=== PATIENT | female | born 1980 | race Caucasian/White ===

== ENCOUNTER → 2020-04-09 | Outpatient (CLI) | payer BC ==
[2020-04-09 11:55] LABS: Basophils # (A) 0.1 k/uL (0-0.2); Basophils % (A) 1 %; Eosinophils # (A) 0.2 k/uL (0-0.7); Eosinophils % (A) 3 %; HCT 42.4 % (34.0-46.0); HGB 12.9 gm/dL (11.4-16.0); Lymphocytes # (A) 1.6 k/uL (1.0-4.8); Lymphocytes % (A) 22 %; MCH 28.6 pg (25.0-35.0); MCHC 30.5 g/dL (31.0-37.0); Mean Platelet Volume 9.9; Monocytes # (A) 0.4 k/uL (0-1.0); Monocytes % (A) 6 %; Neutrophils # (A) 4.8 k/uL (1.3-7.7); Neutrophils % (A) 67 %; Platelet Count 175 k/uL (150-450); RBC 4.52 m/uL (3.80-5.40); RDW 12.8 % (11.5-15.5); WBC 7.2 k/uL (3.8-10.6)
[2020-04-09 20:00] LABS: Albumin 4.1 g/dL (3.80-4.90); Albumin/Globulin Ratio 2.05 (1.60-3.17); Anion Gap 7.5 mmol/L (4.00-12.00); Calcium 8.9 mg/dL (8.7-10.3); Carbon Dioxide 25.5 mmol/L (21.6-31.8); Chol/HDL Ratio 2.23; LDL Cholesterol,Calculated 89.8 mg/dL (0.0-131.0); Non-African American GFR(CKD) 69.9 (60.0-200.0); Potassium 4.3 mmol/L (3.5-5.5); Total Bilirubin 0.4 mg/dL (0.3-1.2); Total Protein 6.1 g/dL (6.2-8.2); VLDL Calculation 10.2 mg/dL (5.00-40.00)
== END | disposition home or self-care (01) ==
LOC: LABWHC1 11:12
PROVIDERS: ATTEND Internal Medicine
DX: K21.0 Gastro-esophageal reflux disease with esophagitis (principal); E11.9 Type 2 diabetes mellitus without complications; K58.0 Irritable bowel syndrome with diarrhea
CPT/HCPCS: 36415; 80053; 80061; 83036; 85025

== ENCOUNTER → 2020-11-05 | Outpatient (CLI) | payer BC ==
--- NOTE | 2020-11-06 08:00 | MM ---
Reason for exam: history of breast augmentation, asymptomatic. Baseline mammogram. History: Patient had first child at age 30. Silicone gel implants, 2012. Physical Findings: Nurse did not find any significant physical abnormalities on exam. MG 3D Diag Mammo Imp W/Cad ALTON Bilateral CC, MLO, and ID view(s) were taken. The breast tissue is heterogeneously dense. This may lower the sensitivity of mammography. Bilateral retropectoral silicone implants. Medial right C view nodular asymmetric density disperses on additional views. Low left upper outer quadrant node near the axilla. These results were verbally communicated with the patient and result sheet given to the patient on 11/05/20. ASSESSMENT: Benign, BI-RAD 2 RECOMMENDATION: Routine screening mammogram of both breasts in 1 year.
== END | disposition home or self-care (01) ==
LOC: RADMAMWWP 14:54
PROVIDERS: ATTEND Internal Medicine
DX: R92.8 Other abnormal and inconclusive findings on diagnostic imaging of breast (principal)
CPT/HCPCS: 77062; 77066

== ENCOUNTER → 2020-12-21 | Outpatient (CLI) | payer BC ==
--- NOTE | 2020-12-21 15:39 | XR ---
Lumbar spine HISTORY: Low back pain, M 47.817 3 views of the lumbar spine Surgical clips are present in the right upper quadrant, there is a metallic device in the right lower quadrant. Question rudimentary ribs at L1. There is loss of disc height L5-S1 greater than L4-5, mul tilevel spondylosis. Sclerosis is present in the posterior elements. Lumbar vertebral bodies show pre served height, alignment, and bone mineralization. IMPRESSION: Degenerative disc disease and additional findings above.
== END ==
LOC: RADXRMAIN 11:45
PROVIDERS: ATTEND Internal Medicine
DX: M47.817 Spondylosis without myelopathy or radiculopathy, lumbosacral region (principal); M51.36 Other intervertebral disc degeneration, lumbar region
CPT/HCPCS: 72100

== ENCOUNTER → 2021-01-28 | Outpatient (CLI) | payer BC ==
--- NOTE | 2021-01-29 04:01 | MR ---
EXAMINATION TYPE: MR lumbar spine wo con DATE OF EXAM: 01/28/2021 COMPARISON: None HISTORY: Low back pain into rt buttocks and left leg Multiplanar multiecho imaging of the lumbar spine was performed with no contrast. The lumbar vertebra have normal alignment. There is narrowing and decreased signal in the disks at L4 -5 and L5-S1. There is moderate posterior disc herniation at L5-S1 into the spinal canal centrally an d towards left side. The neural foramina are fairly well-maintained. Lumbar nerves appear normal. There is no paraspinal m ass. There is no compression fracture. Sacroiliac joints appear intact. IMPRESSION: Spondylotic changes at L4-5 and L5-S1. Posterior moderate central and left side L5-S1 lumbar disc her niation. No spinal stenosis.
== END | disposition home or self-care (01) ==
LOC: RADMRIMAIN 08:10
PROVIDERS: ATTEND Internal Medicine
DX: M51.27 Other intervertebral disc displacement, lumbosacral region (principal); M47.817 Spondylosis without myelopathy or radiculopathy, lumbosacral region
CPT/HCPCS: 72148

== ENCOUNTER → 2021-02-24 | Outpatient (CLI) | payer BC ==
[2021-02-24 11:00] VITALS: BP 106/70; PULSE 77; RESP 16; TEMP 98.4
--- NOTE | 2021-02-24 11:06 | P.PAINCN ---
History of Present Illness - Reason for Consult Consult date: 02/24/21 - History of Present Illness This is a 40-year-old patient referred by Dr. Polanco with a chief complaint of chronic pain in low back with radiation into left buttock and leg. Charted 4 months ago with no inciting incident. Pain is located in the left low back with radiation down the posterior aspect of the leg to the knee. Pain is described as sharp, shooting, numb and tingling. Alleviated with laying down and rest. Exacerbated by standing from a seated position and walking. Early 7 out of 10, at its worst a 7 out of 10, at best at 7 out of 10. She does not endorse any weakness in the left leg, just pain. In terms of management she did a full course of physical therapy relief. She has tried muscle relaxants and [facility] with no real help. She has not had injections in the back before. Patient denies adverse drug effects from medications. Patient also denies new-onset weakness, bowel/bladder incontinence, or any other signs or symptoms of cauda equina syndrome. There are no signs of acute intoxication, and no indications of medication diversion or overuse. In addition to above, 13-point review of systems is also negative for chest pain, shortness of breath, changes in vision, changes in hearing, new onset weakness, abdominal pain, diarrhea, extreme fatigue, malaise, fever, skin changes, homicidal or suicidal ideation, or bowel or bladder incontinence. Physical exam: Vital Signs: Reviewed in EMR GENERAL: Well appearing, in no acute distress PSYCH: Mood and affect is appropriate. Awake, alert, and oriented SKIN: Skin color, texture, turgor normal, no rashes or lesions HEENT: Normocephalic, atraumatic. EOM intact CV: No pedal edema RESP: Respirations are unlabored, no audible wheezing GI: Abdomen non-distended MUSCULOSKELETAL: 4/5 L hip flexion, otherwise intact bilaterally strength reynoso.. No atrophy or tone abnormalities are noted. Lumbar spine: Straight leg raising on the left is positive for radicular pain. No pain to palpation over the lumbar spine and paraspinous muscles. Negative for pain with facet loading and back extension/rotation. Decreased lumbar flexion due to pain Buttocks: No pain to palpation over the PSIS, Ruchi test is negative Extremities: Peripheral joint ROM is full and pain free without obvious instability or laxity in all four extremities. No edema or skin discolorations noted. Gait: Gait is normal NEUR: Bilateral upper and lower extremity coordination and muscle stretch reflexes are physiologic and symmetric. Negative clonus. No loss of sensation is noted. Cranial nerves are grossly intact. Imaging: Lumbar MRI 01/2021 Her MRI shows normal alignment. There is a moderate central left-sided disc bulge L5-S1 with stenosis of the left lateral recess and left neural foramen Assessment: 1. Lumbar disc herniation Plan: 1. Explanation: Diagnoses, prognoses, and multiple treatment options including but not limited to physical therapy, interventional therapies, medication management and surgery were discussed with the patient and all questions were answered to the patient's satisfaction. 2. Investigations: none 3. Counseling: none 4. Procedures: L L5-S1 TFESI 5. Consultations: None 6. Medications: Continue home medications as needed 7. Disposition: for above procedure I have spent 51 minutes on patient care today. The time was used to review the medical records including relevant urine studies and prescription history, review of the available imaging, evaluation and examination of the patient, coordination of care with medical staff and if applicable referring physicians, as well as creation of the medical record.
== END ==
LOC: PNWHC3 10:43
PROVIDERS: ATTEND Anesthesiology
DX: M51.26 Other intervertebral disc displacement, lumbar region (principal)
CPT/HCPCS: 99211

== ENCOUNTER → 2021-03-11 | Day surgery (SDC) | payer BC ==
[~2021-03-11] MED LIST: DEXAMETHASONE SOD PHOSPHATE 10 MG/ML 1 ML VIAL ONE; IOPAMIDOL M200 10 ML VIAL ONE; IV FLUID CONTINUATION 600 ML IV ONE; LACTATED RINGERS 1,000 ML IV SCH; LIDOCAINE 1% (10MG/ML) FOR IV START INTRADERMA ONE; LIDOCAINE 1% INJ 10MG/ML (20 ML MDV) ONE; MIDAZOLAM 2 MG/2 ML VIAL ONE; fentaNYL (PF) 50 MCG/ML 2 ML AMP ONE
[2021-03-11 07:53] VITALS: RESP 16; TEMP 98.2
[2021-03-11 07:55] LABS: Glucose,Whole Blood 334 mg/dL (75-99)
--- NOTE | 2021-03-11 08:46 | P.PCN ---
Date of Procedure: 03/11/21 Surgeon: Lawrence Perry Pathology: none sent Condition: stable Disposition: PACU Description of Procedure: PREOPERATIVE DIAGNOSIS: Lumbar radiculopathy POSTOPERATIVE DIAGNOSIS: Lumbar radiculopathy PROCEDURE 1. Transforaminal epidural steroid injection under fluoroscopic guidance at L5- S1 left 2. Lumbar epidurogram. SURGEON: Lawrence Perry MD PULLING MACHINE OPERATOR: ANESTHESIA: Local with 1% lidocaine; IV sedation with Versed and fentanyl. EBL: Minimal PROCEDURE INDICATION: The patient with low back pain and radiculopathy symptoms unresponsive to conservative treatment. PROCEDURE DESCRIPTION / TECHNIQUE: The patient was seen and identified in the preoperative area. Risks, benefits, complications, and alternatives were discussed with the patient. The patient agreed to proceed with the procedure and signed the consent. IV was started, and vital signs were stable. Patient was taken to the OR and time out was completed. The patient was placed in the prone position on procedure table and a pillow was placed under the abdomen to reduce lumbar lordosis. The lumbosacral area was prepped and draped in the usual sterile fashion. Critical pause was taken. Vital signs were closely monitored during the procedure. Conscious sedation was used during the procedure to decrease patients anxiety. The vertebral body of the lumbar vertebra L5 was squared off by tilting the C-arm cephalad then the C-arm was tilted to the oblique position and the target point was at the 6 o'clock position of the pedicle of L5 then skin and deeper tissues were localized with 1% lidocaine. Subsequently, a 22-gauge 3.5- inch spinal needle was advanced under a tunneled view fluoroscopic guidance just underneath the chin of the Luis Alfredo dog at the . Under lateral fluoroscopy, the needle was then advanced to the middle of the upper one third of the foramen between( L5-S1). After negative aspiration of CSF and blood and with no paresthesias, 1 mL of omnipaque contrast dye was injected excellent epidurogram and outlining of the L5 nerve root was identified. Subsequently, 2 mL of block solution containing 10 mg of Decadron and 1 mL of Lidocaine 1% PF was injected. Needle was removed intact . At the end of the procedure, skin was cleansed, and bandages were applied. COMPLICATIONS: None COMMENTS: DISPOSITION / PLANS: The patient was placed in a supine position and transferred to the recovery area in a stable condition for observation. There was no evidence of lower extremity motor or sensory deficit after the procedure. Patient was discharged from the recovery room after meeting discharge criteria. Home discharge instructions were given to the patient by the staff.
[2021-03-11 09:00] LABS: Glucose,Whole Blood 249 mg/dL (75-99)
--- NOTE | 2021-03-11 09:03 | FL ---
Fluoroscopy HISTORY: Pain 20 seconds fluoroscopy time supplied to the referring clinician. 3 intraoperative C-arm images docum ent the procedure. See dictated report from anesthesia.
[2021-03-11 09:18] VITALS: BP 107/67; PULSE 70
== END ==
LOC: ORPAIN 07:06
PROVIDERS: ATTEND Anesthesiology
DX: M54.16 Radiculopathy, lumbar region (principal); E11.9 Type 2 diabetes mellitus without complications
CPT/HCPCS: 81025; 64483; J2250; J1100; J2001; J3010; Q9966; 99152

== ENCOUNTER → 2021-04-12 | Outpatient (CLI) | payer BC ==
--- NOTE | 2021-04-12 15:30 | XR ---
EXAMINATION TYPE: XR chest 2V DATE OF EXAM: 04/12/2021 COMPARISON: NONE HISTORY: Preoperative TECHNIQUE: Frontal and lateral views of the chest are obtained. FINDINGS: There is no focal air space opacity, pleural effusion, or pneumothorax seen. The cardiac silhouette size is within normal limits. The osseous structures are intact. IMPRESSION: No acute cardiopulmonary process.
[2021-04-12 16:14] LABS: Basophils # (A) 0.1 k/uL (0-0.2); Basophils % (A) 1 %; Eosinophils # (A) 0.2 k/uL (0-0.7); Eosinophils % (A) 3 %; HCT 38.5 % (34.0-46.0); HGB 12.8 gm/dL (11.4-16.0); Lymphocytes # (A) 1.9 k/uL (1.0-4.8); Lymphocytes % (A) 24 %; MCH 30.3 pg (25.0-35.0); MCHC 33.2 g/dL (31.0-37.0); MCV 91.5 fL (80.0-100.0); Mean Platelet Volume 8.8; Monocytes # (A) 0.5 k/uL (0-1.0); Monocytes % (A) 6 %; Neutrophils # (A) 5.2 k/uL (1.3-7.7); Neutrophils % (A) 65 %; Platelet Count 182 k/uL (150-450); RDW 12.8 % (11.5-15.5); WBC 8.1 k/uL (3.8-10.6)
[2021-04-12 16:28] LABS: African American GFR (CKD) >90 (>60 ml/min/1.73 sqM); Anion Gap 6 mmol/L; Blood Urea Nitrogen 16 mg/dL (7-17); Calcium 9.2 mg/dL (8.4-10.2); Carbon Dioxide 27 mmol/L (22-30); Chloride 106 mmol/L (98-107); Glucose 109 mg/dL (74-99); Non-African American GFR(CKD) 85 (>60 ml/min/1.73 sqM); Potassium 4.3 mmol/L (3.5-5.1); Sodium 139 mmol/L (137-145)
[2021-04-12 16:34] LABS: Appearance,Urine Cloudy (Clear); Bilirubin,Urine Negative (Negative); Blood,Urine Negative (Negative); Color,Urine Yellow; Glucose,Urine (UA) Negative (Negative); Hyaline Casts,Urine 1 /lpf (0-2); Ketones,Urine Negative (Negative); Leukocyte Esterase,Urine Trace (Negative); Mucus,Urine Rare /hpf; Nitrite,Urine Negative (Negative); PH, Urine 5.5 (5.0-8.0); Protein,Urine Negative (Negative); RBC,Urine 4 /hpf (0-5); Squamous Epithelial Cell,Urine 3 /hpf (0-4); Urobilinogen,Urine <2.0 mg/dL (<2.0); WBC,Urine 4 /hpf (0-5)
[2021-04-12 16:46] LABS: INR 0.9 (<1.2); Prothrombin Time 9.9 sec (9.0-12.0)
[2021-04-12 16:49] LABS: Partial Thromboplastin Time 21.8 sec (22.0-30.0)
== END | disposition home or self-care (01) ==
LOC: RADXRMAIN 14:45
PROVIDERS: ATTEND Orthopaedic Surgery Orthopaedic Surgery of the Spine
DX: Z01.818 Encounter for other preprocedural examination (principal)
CPT/HCPCS: 36415; 71046; 80048; 81001; 85025; 85610; 85730; 93005

== ENCOUNTER 2021-04-21 09:37 | Observation (INO) | payer BC ==
[2021-04-16 15:54] VITALS: BMI 27.1
[~2021-04-21 09:37] MED LIST changes: -DEXAMETHASONE SOD PHOSPHATE 10 MG/ML 1 ML VIAL ONE; +DEXAMETHASONE SOD PHOSPHATE 4 MG/ML 1 ML VIAL IV ONE; -IOPAMIDOL M200 10 ML VIAL ONE; -IV FLUID CONTINUATION 600 ML IV ONE; -LACTATED RINGERS 1,000 ML IV SCH; -LIDOCAINE 1% (10MG/ML) FOR IV START INTRADERMA ONE; +LIDOCAINE 1% (10MG/ML) FOR IV START INTRADERMA PRN; -LIDOCAINE 1% INJ 10MG/ML (20 ML MDV) ONE; +MIDAZOLAM 2 MG/2 ML VIAL IV PRN; -MIDAZOLAM 2 MG/2 ML VIAL ONE; +ONDANSETRON 4 MG/2 ML VIAL IVP ONE; +ceFAZolin 1,000 MG in SODIUM CHLORIDE 0.9% IRRIGATIO 1,000 ML IRRIGATION PRN; -fentaNYL (PF) 50 MCG/ML 2 ML AMP ONE
[2021-04-21] MEDS ORDERED: SCOPOLAMINE 1.5MG/72HR PATCH TRANSDERM ONE (10:11)
[2021-04-21] MEDS: LACTATED RINGERS 1,000 ML IV SCH (10:11)
[2021-04-21 10:14] LABS: Glucose,Whole Blood 140 mg/dL (75-99)
[2021-04-21] MEDS ORDERED: SUCCINYLCHOLINE CHLORIDE 100 MG/5 ML SYR IV ONE (11:48)
[2021-04-21] MEDS ORDERED: MIDAZOLAM 2 MG/2 ML VIAL ONE (11:48)
[2021-04-21] MEDS ORDERED: ROCURONIUM 10 MG/ML (5 ML VIAL) IV ONE (11:48)
[2021-04-21] MEDS ORDERED: fentaNYL (PF) 50 MCG/ML 2 ML AMP ONE (11:48)
[2021-04-21] MEDS ORDERED: GLYCOPYRROLATE 0.2 MG/ML 2 ML VIAL ONE (11:48)
[2021-04-21] MEDS ORDERED: NEOSTIGMINE 1 MG/ML 10 ML VIAL ONE (11:48)
[2021-04-21] MEDS ORDERED: LIDOCAINE 1% INJ 10MG/ML (20 ML MDV) ONE (11:48)
[2021-04-21] MEDS ORDERED: KETAMINE 10 MG/ML 20 ML VIAL ONE (11:48)
[2021-04-21] MEDS ORDERED: PROPOFOL 10 MG/ML 20 ML VIAL IV ONE (11:48)
[2021-04-21 12:09] LABS: Glucose,Whole Blood 106 mg/dL (75-99)
[2021-04-21] MEDS ORDERED: THROMBIN (BOVINE) 5,000 UNIT VIAL TOPICAL ONE (12:20)
[2021-04-21] MEDS: methylPREDNISolone ACETATE 80 MG/ML 1 ML VIAL INJ ONE ×2 (12:20→12:48)
[2021-04-21] MEDS ORDERED: GELATIN SPONGE,ABSORB (LARGE) 1 EACH SPONGE TOPICAL ONE (12:20)
[2021-04-21] MEDS ORDERED: LIDOCAINE 1%-EPI 1:100,000 20 ML VIAL SQ ONE (12:24)
--- NOTE | 2021-04-21 12:45 | XR ---
EXAM TYPE: LUMBAR SPINE X RAY SERIES COMPARISON: NONE HISTORY: Post laminectomy TECHNIQUE: One views are submitted. FINDINGS: Single lateral view of the lower lumbar spine near the lumbosacral junction demonstrates surgical met allic instrument posterior to the vertebral column. IMPRESSION: Intraoperative localization.
--- NOTE | 2021-04-21 12:46 | FL ---
EXAMINATION TYPE: FL guidance operating room DATE OF EXAM: 04/21/2021 HISTORY: Fluoroscopy time 3 seconds of fluoroscopy provided. IMPRESSION: 1. Fluoroscopy time.
--- NOTE | 2021-04-21 13:12 | P.OP ---
Date of Procedure: 04/21/21 Preoperative Diagnosis: Herniated nucleus pulposis L5-S1, left lower extremity radiculopathy, left lower extremity weakness Postoperative Diagnosis: Same Anesthesia: GETA Pathology: none sent Condition: stable Disposition: PACU Description of Procedure: BRIEF OPERATIVE NOTE Preoperative Diagnosis:Herniated nucleus pulposis L5-S1, left lower extremity radiculopathy, left lower extremity weakness Postoperative Diagnosis:Herniated nucleus pulposis L5-S1, left lower extremity radiculopathy, left lower extremity weakness Procedure: Laminectomy and decompression with partial medial facetectomy and foraminotomy L5-S1 Discectomy for decompression L5-S1 Fluoroscopy for guidance during surgery Surgeon: Dr. Mejia Machine Splitter: David Hutson is present throughout the entire the case persistence during positioning, dissection, exposure, visualization, and all crucial elements of the case as well as closure. Anesthesia: General anesthesia per Dr. Rios Estimated blood loss: Approximately 20 mL Complications: None apparent Components implanted: None Disposition: To recovery room in good stable condition. OPERATIVE INDICATIONS The patient has been having issues in their lower back and lower extremities. She is having extreme worsening pain at her left lower extremity over an S1 distribution with some weakness. The patient was found have a large disc herniation at L5-S1 on the left which probably well with her low back and left lower extremity symptoms. The patient has been through conservative treatment. She is not having any prolonged benefit despite aggressive conservative care. We discussed treatment including laminectomy discectomy L5-S1. We discussed various treatment options including surgery, and the patient wishes to proceed with surgery We discussed the risk, patient's alternatives and benefits of surgery including but not limited to, risk of bleeding risk of infection, risk of need for further surgery, risk of decreased, loss of motion, loss of function, nerve damage, paralysis, heart attack, blindness and . OPERATIVE SUMMARY After discussing all the risks, patient alternatives and benefits at length, the patient elected to proceed with surgical intervention, signed informed consent, and presented for their procedure. The patient was seen and examined in the preoperative holding area and the surgical site was marked. The patient was given antibiotics and brought to the operating room. The patient was sedated and intubated by anesthesia in standard fashion. The patient was positioned on to the operating room table in a prone position on the appropriate frame which was well-padded and well molded. We were careful to pad any bony prominences and pressure points. We were careful to maintain the patient's cervical spine and good neutral alignment and position throughout. The patient was prepped and draped in a normal standard fashion. An appropriate timeout and keystone protocol performed. We were able to proceed with the surgery. Fluoroscopy was utilized to establish the appropriate level of L5-S1. The local wound area was infiltrated with local anesthetic. An incision was made at the midline longitudinally over the appropriate levels at L5-S1. Dissection was taken down subcutaneously to the level of the fascia which was split midline. Dissection was taken over the lamina. Intraoperative fluoroscopy was taken which showed a marker at the appropriate level. With the appropriate level positively confirmed, we were able to proceed with laminectomy. The wound was copiously irrigated and suctioned dry as had been done periodically throughout the case. I performed a laminectomy at L5-S1 on the left with a combination of curettes and a high-speed bur and Kerrison rongeurs. A small medial facetectomy was performed again further access. A partial foraminotomy was also performed. Portions of the ligamentum flavum were taken down to expose the dura and traversing nerve root. I was able to mobilize the traversing nerve root and gain access to the disc space. Note was made of obvious compression from the disc. Protecting the soft tissue structures, a small annulotomy was established. There is some disc extrusion and portion of endplate which had ruptured and become dislodged and extruded causing significant compression on the traversing nerve root. I was able to perform discectomy and remove any extruded disc fragments and any loose fragments from within the disc itself. There is some disc desiccation noted. I tried to preserve the disc annulus that appeared stable. There were no further extruded fragments noted. There is no evidence of dural tear or leak. Good hemostasis maintained. The wound was copiously irrigated and suctioned dry. Good decompression and discectomy was noted. We were able to proceed with closure. The fascia was closed for a watertight closure. The subcuticular tissue was closed with absorbable suture. The wound was cleaned and dried and dressed with the appropriate dressing. The drapes were broken down. The patient was gently rolled back onto their hospital bed being careful to maintain their cervical spine and good neutral alignment and position. They were woken up by anesthesia, extubated, and brought to the recovery room in good stable condition. The patient will be admitted to the hospital for observation and for appropriate postoperative care, medical management and monitoring. We will continue to follow them closely about the postoperative course.
[2021-04-21] MEDS ORDERED: CYCLOBENZAPRINE 10 MG TAB PO PRN (13:13)
[2021-04-21] MEDS ORDERED: HYDROmorphone 0.5 MG/0.5 ML SYRINGE IVP PRN (13:13)
[2021-04-21] MEDS ORDERED: IBUPROFEN 600 MG TAB PO PRN (13:13)
[2021-04-21] MEDS ORDERED: HYDROcodone/APAP 5-325MG 1 EACH TAB PO PRN (13:13)
[2021-04-21] MEDS ORDERED: ONDANSETRON 4 MG/2 ML VIAL IVP PRN (13:13)
[2021-04-21] MEDS ORDERED: HYDROmorphone 1 MG/ML 1 ML SYRINGE IVP PRN (13:13)
[2021-04-21] MEDS ORDERED: BENZOCAINE/MENTHOL LOZENG 1 EACH LOZENGE MUCOUS MEM PRN (13:13)
[2021-04-21] MEDS ORDERED: ACETAMINOPHEN TAB 325 MG TAB PO PRN (13:13)
[2021-04-21] MEDS ORDERED: traMADol 50 MG TAB PO PRN (13:13)
[2021-04-21] MEDS ORDERED: Insulin Aspart (For Pump) 100 UNIT/ML VIAL SQ-PUMP SCH (13:15)
[2021-04-21] MEDS ORDERED: HYDROcodone/APAP 7.5-325MG 1 EACH TAB PO PRN (13:15)
[2021-04-21] MEDS ORDERED: methocarbamoL 500 MG TAB PO PRN (13:15)
[2021-04-21] MEDS: HYDROmorphone 0.5 MG/0.5 ML SYRINGE IVP PRN ×2 (13:35→13:50)
[2021-04-21] MEDS ORDERED: FAMOTIDINE 20 MG/2 ML VIAL IVP ONE (14:08)
[2021-04-21] MEDS: KETOROLAC 15 MG/ML 1 ML VIAL IVP PRN ×2 (14:08→20:44)
[2021-04-21] MEDS ORDERED: fentaNYL (PF) 50 MCG/ML 2 ML AMP IVP ONE (14:23)
[2021-04-21] MEDS ORDERED: ONDANSETRON 4 MG/2 ML VIAL IVP ONE (14:36)
[2021-04-21 15:16] LABS: Glucose,Whole Blood 74 mg/dL (75-99)
[2021-04-21 16:08] LABS: Glucose,Whole Blood 67 mg/dL (75-99)
[2021-04-21 16:29] LABS: Glucose,Whole Blood 68 mg/dL (75-99)
[2021-04-21] MEDS ORDERED: DEXTROSE 50% SYRINGE 50 ML IVP ONE (16:31)
[2021-04-21 16:48] LABS: Glucose,Whole Blood 154 mg/dL (75-99)
[2021-04-21] MEDS: SODIUM CHLORIDE 0.9% 1,000 ML IV SCH (17:02)
[2021-04-21 19:40] VITALS: RESP 16
[2021-04-21] MEDS ORDERED: traZODone HCL 100 MG TAB PO SCH (21:00)
[2021-04-21] MEDS ORDERED: MELATONIN 5 MG TABLET PO SCH (21:00)
[2021-04-22] MEDS: SODIUM CHLORIDE 0.9% 1,000 ML IV SCH (02:23)
[2021-04-22] MEDS: LACTATED RINGERS 1,000 ML IV SCH (04:17)
[2021-04-22 08:44] VITALS: BP 100/62; PULSE 72; TEMP 97.8
[2021-04-22] MEDS ORDERED: lamoTRIgine 100 MG TAB PO SCH (09:00)
[2021-04-22] MEDS ORDERED: DIPHENOX-ATROP 2.5-0.025 MG 1 EACH TAB PO SCH (09:00)
[2021-04-22] MEDS ORDERED: CITALOPRAM HYDROBROMIDE 20 MG TAB PO SCH (09:00)
--- NOTE | 2021-04-22 09:59 | P.DS ---
Providers Date of admission: 04/21/21 20:59 Attending physician: Elroy Mejia Primary care physician: Ynes Polanco [facility] Course: The patient presented on the day of admission as per their operative note.she underwent laminectomy decompression with discectomy L5-S1 for her lower extremity radiculopathy and weakness and disc herniation at L5-S1. She feels her legs is making some improvement but still having some numbness Physical Exam The incision site is clean dry and intact. There is no erythema no drainage. There is no purulence no evidence of infection.dressing is clean and dry without any drainage Abdomen soft and nontender. Chest has good excursion with deep inspiration and expiration. The patient has active and passive range of motion intact at the upper and lower extremities. There is no acute change in neurologic status.she has sustained dorsal flexion plantar flexion and EHL intact Hospital Course postoperative day #1 status post laminectomy decompression with discectomy L5-S1 for disc herniation and lower extremity radiculopathy with weakness. The patient has been making good progress postoperatively. They have completed the prophylactic antibiotics without any signs or symptoms of infection. The patient has been able to advance their diet, and is tolerating diet adequately. The pain was initially controlled with IV medications and is now controlled appropriately with oral medications. The patient has been able to increase their mobilization. The patient has progressed appropriately. I think they are in good stable condition for discharge today. They will be sent home with appropriate prescriptions. I answered their questions to the best of my ability in a language that they can understand and they are agreeable with the plan. They will follow up as directedIn approximately 2 weeks or sooner if she is having problems. Patient Condition at Discharge: Good Plan - Discharge Summary Discharge Rx Participant: No New Discharge Prescriptions: New HYDROcodone/APAP 7.5-325MG [Nesmith 7.5-325] 1 tab PO Q4H PRN #42 tab PRN Reason: Pain No Action Insulin Aspart (For Pump) [NovoLOG (For Pump)] 0.01 unit SQ-PUMP CONTINUOUS Citalopram Hydrobromide [CeleXA] 20 mg PO QAM traZODone HCL 100 mg PO HS methocarbamoL [Methocarbamol] 500 mg PO HS PRN PRN Reason: Muscle Spasm HYDROcodone/APAP 7.5-325MG [Nesmith 7.5-325] 1 tab PO BID PRN PRN Reason: Pain lamoTRIgine [LaMICtal] 100 mg PO QAM Diphenoxylate HCl/Atropine [Lomotil 2.5-0.025 mg Tablet] 2 tab PO QAM Melatonin 10 mg PO HS Discharge Medication List Citalopram Hydrobromide [CeleXA] 20 mg PO QAM 03/10/21 [History] Diphenoxylate HCl/Atropine [Lomotil 2.5-0.025 mg Tablet] 2 tab PO QAM 03/10/21 [History] HYDROcodone/APAP 7.5-325MG [Nesmith 7.5-325] 1 tab PO BID PRN 03/10/21 [History] Insulin Aspart (For Pump) [NovoLOG (For Pump)] 0.01 unit SQ-PUMP CONTINUOUS 03/10/21 [History] Melatonin 10 mg PO HS 03/10/21 [History] lamoTRIgine [LaMICtal] 100 mg PO QAM 03/10/21 [History] methocarbamoL [Methocarbamol] 500 mg PO HS PRN 03/10/21 [History] traZODone HCL 100 mg PO HS 03/10/21 [History] HYDROcodone/APAP 7.5-325MG [Nesmith 7.5-325] 1 tab PO Q4H PRN #42 tab 04/21/21 [Rx] Follow up Appointment(s)/Referral(s): Elroy Mejia DO [Doctor of Osteopathic Medicine] - 2 Weeks Activity/Diet/Wound Care/Special Instructions: Keep site clean. May shower with waterproof Tegaderm intact. Do not soak in a tub. After 72 hours postoperatively, patient May remove dressing and then may shower with area uncovered. Leave glue intact and allow it to fray off on its own. May ambulate as tolerated. Avoid heavy or rigorous activity. No repetitive bending twisting or lifting. No overhead work.
== END 2021-04-22 11:04 | disposition home or self-care (01) ==
LOC: OR 09:37 → 4SSUR 13:20 → OR 20:59
PROVIDERS: ADMIT Orthopaedic Surgery Orthopaedic Surgery of the Spine; ATTEND Orthopaedic Surgery Orthopaedic Surgery of the Spine
DX: M51.17 Intervertebral disc disorders with radiculopathy, lumbosacral region (principal); E11.9 Type 2 diabetes mellitus without complications; K21.9 Gastro-esophageal reflux disease without esophagitis; Z79.4 Long term (current) use of insulin; Z79.899 Other long term (current) drug therapy; Z90.49 Acquired absence of other specified parts of digestive tract; Z98.82 Breast implant status; Z87.891 Personal history of nicotine dependence
CPT/HCPCS: 97161; 81025; 87635; 72020; 63030; G0378 ×2; J2250; J1040; J2710; J0690 ×3; J2405; J2001; J3010; J1885; J0330; J2704; J1170

== ENCOUNTER → 2021-06-02 | Outpatient (CLI) | payer BC ==
--- NOTE | 2021-06-02 22:01 | MR ---
EXAMINATION TYPE: MR lumbar spine wo/w con DATE OF EXAM: 06/02/2021 COMPARISON: NONE HISTORY: 40-year-old female M54.5, low back pain into left side, Hx of diskectomy Technique: Multiplanar, multisequence images of the lumbar spine were obtained before and after admin istration of 7 mL intravenous Gadavist gadolinium contrast. FINDINGS: Vertebral body heights are preserved and alignment is maintained. No suspicious bone marrow replacement. Mild degenerative disc disease L4-L5 and L5-S1 with desiccated and bulging discs. Enhancing posterior annular fissure at both of these levels. Patient is status post left L5 laminotomy change. There is some thickened, enhancing tissue within th e laminotomy defect extending into the left lateral recess and showing some central nonenhancement maza ggesting some internal fluid, refer to postcontrast axial image 3. Facet arthropathy lower lumbar spine. Conus medullaris is normal. From T12 through L4 levels, no spinal canal or foraminal stenosis. At L4-L5, there is trace grade 1 retrolisthesis. Mild bulging disc and facet arthropathy. Changes res ult in mild right neural foraminal stenosis. No spinal canal stenosis. At L5-S1, ligamentum flavum thickening and posterior disc bulge are present. In addition, the abnorma l enhancing tissue extending from the left L5 laminotomy defect into the left lateral recess causes o verall mild narrowing of the spinal canal. There is mild left greater than right neural foraminal live nosis. There may be some partial encasement of the traversing left S1 nerve root. No prevertebral or paravertebral soft tissue abnormality seen. IMPRESSION: 1. Left L5 laminotomy defect. There is some thickened enhancing tissue, likely granulation tissue, wi thin the laminotomy defect extending anteriorly into the left lateral recess of L5-S1 and some fluid within the thickened, enhancing tissue, possible seroma. Correlate clinically to exclude infective fl uid. 2. This thickened, enhancing tissue appears to partially encase the traversing left S1 nerve root. 3. Mild degenerative disc disease L4-L5 and L5-S1 with posterior annular fissures. Mild overall narro wing of the spinal canal at L5-S1. 3. Trace degenerative 1 retrolisthesis at L4-L5.
== END | disposition home or self-care (01) ==
LOC: RADMRIMAIN 06:57
PROVIDERS: ATTEND Orthopaedic Surgery Orthopaedic Surgery of the Spine
DX: M48.061 Spinal stenosis, lumbar region without neurogenic claudication (principal); M51.17 Intervertebral disc disorders with radiculopathy, lumbosacral region; M43.16 Spondylolisthesis, lumbar region
CPT/HCPCS: 72158; A9585

== ENCOUNTER 2021-06-09 08:38 | Day surgery (SDC) | payer BC ==
[~2021-06-09 08:38] MED LIST changes: +CEFAZOLIN IRRIGATION PRN; -DEXAMETHASONE SOD PHOSPHATE 4 MG/ML 1 ML VIAL IV ONE; -LIDOCAINE 1% (10MG/ML) FOR IV START INTRADERMA PRN; -MIDAZOLAM 2 MG/2 ML VIAL IV PRN; -ONDANSETRON 4 MG/2 ML VIAL IVP ONE; +SODIUM CHLORIDE 0.9% IRRIGATION PRN
[2021-06-09] MEDS ORDERED: LIDOCAINE 1% (10MG/ML) FOR IV START INTRADERMA ONE (09:43)
[2021-06-09] MEDS ORDERED: LACTATED RINGERS 1,000 ML IV ONE ×2 (09:43→11:27)
[2021-06-09] MEDS ORDERED: ONDANSETRON 4 MG/2 ML VIAL ONE (09:44)
[2021-06-09 09:47] LABS: Glucose,Whole Blood 101 mg/dL (75-99)
[2021-06-09] MEDS ORDERED: ONDANSETRON 4 MG/2 ML VIAL IVP ONE (09:48)
[2021-06-09] MEDS ORDERED: MIDAZOLAM 2 MG/2 ML VIAL ONE (10:16)
[2021-06-09] MEDS ORDERED: HYDROmorphone (PF) 1 MG/ML ONE (10:16)
[2021-06-09] MEDS ORDERED: PROPOFOL 10 MG/ML 20 ML VIAL IV ONE (10:16)
[2021-06-09] MEDS ORDERED: KETOROLAC 15 MG/ML 1 ML VIAL ONE (10:16)
[2021-06-09] MEDS ORDERED: fentaNYL (PF) 50 MCG/ML 2 ML AMP ONE (10:16)
[2021-06-09] MEDS ORDERED: SUCCINYLCHOLINE CHLORIDE 100 MG/5 ML SYR IV ONE (10:16)
[2021-06-09] MEDS ORDERED: LIDOCAINE 1%-EPI 1:100,000 20 ML VIAL SQ ONE ×2 (10:20→10:40)
[2021-06-09] MEDS ORDERED: BUPIVACAINE (PF) 0.25% 30 ML VIAL SQ ONE ×2 (10:20→10:40)
[2021-06-09] MEDS ORDERED: methylPREDNISolone ACETATE 40 MG/ML 1 ML VIAL INJ ONE (10:21)
--- NOTE | 2021-06-09 11:22 | XR ---
EXAM TYPE: LUMBAR SPINE X RAY SERIES COMPARISON: NONE HISTORY: Lumbar laminectomy TECHNIQUE: One view is submitted. FINDINGS: Single crosstable lateral view demonstrating the lumbosacral junction demonstrates a metallic instrum ent posterior to the lumbosacral junction. IMPRESSION: 1. Intraoperative localization
--- NOTE | 2021-06-09 11:24 | FL ---
EXAMINATION TYPE: FL guidance operating room DATE OF EXAM: 06/09/2021 HISTORY: Fluoroscopy time 1 seconds of fluoroscopy provided. IMPRESSION: 1. Fluoroscopy time.
[2021-06-09] MEDS ORDERED: CYCLOBENZAPRINE 10 MG TAB PO PRN (11:46)
[2021-06-09] MEDS ORDERED: BENZOCAINE/MENTHOL LOZENG 1 EACH LOZENGE MUCOUS MEM PRN (11:46)
[2021-06-09] MEDS ORDERED: KETOROLAC 15 MG/ML 1 ML VIAL IVP PRN (11:46)
[2021-06-09] MEDS ORDERED: ACETAMINOPHEN TAB 500 MG TAB PO PRN (11:46)
[2021-06-09] MEDS ORDERED: HYDROcodone/APAP 5-325MG 1 EACH TAB PO PRN ×2 (11:46)
[2021-06-09] MEDS ORDERED: HYDROmorphone 1 MG/ML 1 ML SYRINGE IVP PRN (11:46)
[2021-06-09] MEDS ORDERED: HYDROcodone/APAP 7.5-325MG 1 EACH TAB PO PRN (11:53)
[2021-06-09] MEDS ORDERED: SODIUM CHLORIDE 0.9% 1,000 ML IV SCH (12:00)
--- NOTE | 2021-06-09 12:01 | P.OP ---
Date of Procedure: 06/09/21 Preoperative Diagnosis: Recurrent disc herniation L5-S1 on the left, left lower extremity radiculopathy, left lower extremity weakness, approximately 7 weeks status post laminectomy decompression discectomy L5-S1, Postoperative Diagnosis: Recurrent disc herniation L5-S1 on the left, left lower extremity radiculopathy, left lower extremity weakness, approximately 7 weeks status post laminectomy decompression discectomy L5-S1 Anesthesia: GETA Pathology: other (Deep wound had interlaminar space L5-S1 cultures sent to pathology and products of laminectomy sent to pathology) Condition: stable Disposition: PACU Description of Procedure: BRIEF OPERATIVE NOTE Preoperative Diagnosis:Recurrent disc herniation L5-S1 on the left, left lower extremity radiculopathy, left lower extremity weakness, approximately 7 weeks status post laminectomy decompression discectomy L5-S1 Postoperative Diagnosis:Recurrent disc herniation L5-S1 on the left, left lower extremity radiculopathy, left lower extremity weakness, approximately 7 weeks status post laminectomy decompression discectomy L5-S1 Procedure: Revision Laminectomy and decompression L5-S1 with revision laminotomy and partial medial facetectomy Revision Discectomy for decompression Surgeon: Dr. Mejia Bobbin Winder: David JACKMAN who is present throughout the entire the case nirmal ramos during positioning, dissection, exposure, visualization, and all crucial elements of the case as well as closure. Anesthesia: General anesthesia per Dr. Rios Estimated blood loss: Less than 30 mL Complications: None apparent Components implanted: None Specimen: Deep interlaminar wound culture from L5-S1 and to make biology and proximal of laminectomy sent to pathology Disposition: To recovery room in good stable condition. OPERATIVE INDICATIONS The patient has been having issues in their lower back and lower extremities. Approximately 6 weeks ago on 04/21/2021 she had undergone a laminectomy and discectomy at L5-S1 for large extruded disc herniation with extruded fragment and left lower extremity radiculopathy weakness. The patient initially had relief in recovery room but several days later started having severe recurrence of her pain at her left lower extremity. She is having severe pain over the S1 distributional which was worsening for her becoming quite debilitating. She is not having any fevers or chills she had close follow-up in the office and we try conservative treatment for her. She is not having any issues with her wound or not and not having any fevers and chills. She is not responding despite conservative care and further imaging showed significant signal at the laminectomy site. There had been resolution of the initial extruded disc fragment however there was significant compression at the left interlaminar space on the L5-S1 level at the site of the laminectomy which could've represented recurrent disc versus seroma versus abscess versus granulation tissue. The patient has been through conservative treatment. With her continued pain and debility we felt that further surgical intervention with revision decompression was reasonable. We discussed various treatment options including surgery, and the patient wishes to proceed with surgery We discussed the risk, patient's alternatives and benefits of surgery including but not limited to, risk of bleeding risk of infection, risk of need for further surgery, risk of decreased, loss of motion, loss of function, nerve damage, paralysis, heart attack, blindness and . OPERATIVE SUMMARY After discussing all the risks, patient alternatives and benefits at length, the patient elected to proceed with surgical intervention, signed informed consent, and presented for their procedure. The patient was seen and examined in the preoperative holding area and the surgical site was marked. The patient was given antibiotics and brought to the operating room. The patient was sedated and intubated by anesthesia in standard fashion. The patient was positioned on to the operating room table in a prone position on the appropriate frame which was well-padded and well molded. We were careful to pad any bony prominences and pressure points. We were careful to maintain the patient's cervical spine and good neutral alignment and position throughout. The patient was prepped and draped in a normal standard fashion. An appropriate timeout and keystone protocol performed. We were able to proceed with the surgery. Fluoroscopy was utilized to establish the appropriate level. The loc al wound area was infiltrated with local anesthetic. An incision was made at the midline longitudinally over the appropriate levels at L5-S1 protecting soft tissue structures and using her prior incision. The patient does have a tattoo at her lower back and was aware that this would be involved in the incision site. Dissection was taken down subcutaneously to the level of the fascia which was split midline. Dissection was taken over the lamina. I was able to free up the area and there was no evidence of any purulence at the interlaminar space. I was able to visualize the prior laminotomy site. Intraoperative fluoroscopy was taken which showed a marker at the appropriate level at the laminotomy site at L5-S1. With the appropriate level positively confirmed, we were able to proceed with revision laminectomy. We have held off on the antibiotics prior to her surgery and took a deep wound culture at the interlaminar space at L5-S1. I do not see any purulence I did not see any pus I did not see any abscess. After the culture was taken she was given prophylactic antibiotics with Ancef 2 g. The wound was copiously irrigated and suctioned dry as had been done periodically throughout the case. I performed a revision laminectomy with a combination of curettes and a high-speed bur and Kerrison rongeurs. There is significant scar tissue formation around the area which was able to be taken down. There was significant pressure from the scar tissue and what appeared to be new disc herniation at the site. I was able to mobilize the scar tissue and the recurrent disc herniation and remove significant amounts of what appeared to be extruded disc and scar tissue. This was sent for pathology. A revision small medial facetectomy was performed again further access. A further partial foraminotomy was also performed. I had to take down further Portions of the ligamentum flavum to fully evaluate the area. I was able to mobilize the traversing nerve root and gain access to the disc space. There had been significant pressure from the scar tissue and from the recurrent disc herniation and I was able to remove this area as well to get excellent decompression of the area.. Protecting the soft tissue structures, I extended a small annulotomy at the L5-S1 space. I was able to perform discectomy and remove any extruded disc fragments and any loose fragments from within the disc itself. There is some disc severe disc loss and desiccation noted. I tried to preserve the disc annulus that appeared stable. There were no further extruded fragments noted. The nerve root was freely mobile there was significant erythema around the dura from irritation but it was intact without any evidence of leak. There is no evidence of dural tear or leak. Good hemostasis maintained. The wound was copiously irrigated and suctioned dry. Good decompression and discectomy was noted. We were able to proceed with closure. The fascia was closed for a watertight closure. The subcuticular tissue was closed with absorbable suture. The wound was cleaned and dried and dressed with the appropriate dressing. The drapes were broken down. The patient was gently rolled back onto their hospital bed being careful to maintain their cervical spine and good neutral alignment and position. They were woken up by anesthesia, extubated, and brought to the recovery room in good stable condition. The patient will be admitted to the hospital for observation and for appropriate postoperative care, medical management and monitoring. We will continue to follow them closely about the postoperative course.
[2021-06-09 12:06] LABS: Glucose,Whole Blood 49 mg/dL (75-99)
[2021-06-09 12:06] LABS: Glucose,Whole Blood 50 mg/dL (75-99)
[2021-06-09] MEDS ORDERED: DEXTROSE 50% SYRINGE 50 ML IVP ONE ×2 (12:07→12:14)
[2021-06-09] MEDS: HYDROmorphone 0.5 MG/0.5 ML SYRINGE IVP PRN ×2 (12:15→12:28)
[2021-06-09 12:31] LABS: Glucose,Whole Blood 181 mg/dL (75-99)
[2021-06-09 12:50] VITALS: TEMP 97.6
[2021-06-09] MEDS ORDERED: HYDROcodone/APAP 7.5-325MG 1 EACH TAB PO ONE (13:30)
[2021-06-09 13:51] VITALS: RESP 16
[2021-06-09 14:13] VITALS: BP 101/64; PULSE 62
== END 2021-06-09 14:25 | disposition home or self-care (01) ==
LOC: OR 08:38
PROVIDERS: ATTEND Orthopaedic Surgery Orthopaedic Surgery of the Spine
DX: M51.16 Intervertebral disc disorders with radiculopathy, lumbar region (principal); Z79.4 Long term (current) use of insulin; E11.9 Type 2 diabetes mellitus without complications; Z87.891 Personal history of nicotine dependence; Z79.899 Other long term (current) drug therapy
CPT/HCPCS: 63042; 81025; 88307; 88311; 87070; 87205; 87075; 72020; J2250; J0690 ×2; J2405; J3010; J1170 ×2; J1885; J0330; J2704

== ENCOUNTER 2021-11-13 12:57 | Emergency (ER) | payer BC ==
[2021-11-13 13:05] VITALS: TEMP 98.3
[2021-11-13] MEDS ORDERED: KETOROLAC 15 MG/ML 1 ML VIAL IVP STA (13:33)
--- NOTE | 2021-11-13 13:36 | ED ---
Back Pain HPI - General Chief Complaint: Back Pain/Injury Stated Complaint: Hip/Back Pain Time Seen by Provider: 11/13/21 13:20 Source: patient, RN notes reviewed, old records reviewed Limitations: no limitations - History of Present Illness Initial Comments: This is a 40-year-old female history of 2 prior surgeries for L5-S1 disc problems with radiculopathy to the left leg who states she's been doing relatively well since her latest surgery until 3 days ago when she woke up with dull and sharp left low back pain with some radiation to her left lateral thigh area. She denies any fevers chills nausea vomiting sweats dysuria hematuria abdominal pain a known injury. No trouble with urinary or fecal incontinence. She states the pain is dull when she sitting up with any type of movement however become sharp as severe as 7/10 in severity. She does have [place] and tramadol which don't really help the pain at all. No other current complaints or modifying factors. She does also deny any chance of at this time. MD Complaint: back pain - Related Data Home Medications Medication Instructions Recorded Confirmed Citalopram Hydrobromide [CeleXA] 20 mg PO QAM 03/10/21 06/09/21 Diphenoxylate HCl/Atropine 2 tab PO QAM 03/10/21 06/09/21 [Lomotil 2.5-0.025 mg Tablet] HYDROcodone/APAP 7.5-325MG [[place] 1 tab PO BID PRN 03/10/21 06/09/21 7.5-325] Insulin Aspart (For Pump) [NovoLOG 0.01 unit SQ-PUMP CONTINUOUS 03/10/21 06/09/21 (For Pump)] Melatonin 10 mg PO HS 03/10/21 06/09/21 lamoTRIgine [LaMICtal] 100 mg PO QAM 03/10/21 06/09/21 methocarbamoL [Methocarbamol] 500 mg PO HS PRN 03/10/21 06/09/21 traZODone HCL 100 mg PO HS 03/10/21 06/09/21 Previous Rx's Medication Instructions Recorded HYDROcodone/APAP 7.5-325MG [[place] 1 tab PO Q4H PRN #42 tab 04/21/21 7.5-325] Cephalexin [Keflex] 500 mg PO Q6HR 1 Days #20 cap 06/09/21 HYDROcodone/APAP 7.5-325MG [[place] 1 tab PO Q4H PRN #42 tab 06/09/21 7.5-325] Orphenadrine [Norflex] 100 mg PO Q12H #7 tab 11/13/21 predniSONE [Deltasone] 20 mg PO BID #10 tab 11/13/21 Allergies Allergy/AdvReac Type Severity Reaction Status Date / Time No Known Allergies Allergy Verified 11/13/21 13:05 Review of Systems ROS Statement: Those systems with pertinent positive or pertinent negative responses have been documented in the HPI. ROS Other: All systems not noted in ROS Statement are negative. Past Medical History Past Medical History: Diabetes Mellitus, Musculoskeletal Disorder Additional Past Medical History / Comment(s): IBS. Back pain, herniated disc History of Any Multi-Drug Resistant Organisms: None Reported Past Surgical History: Breast Surgery, Cholecystectomy, Orthopedic Surgery Additional Past Surgical History / Comment(s): gall bladder and breast augmentation. Pain proc Past Anesthesia/Blood Transfusion Reactions: No Reported Reaction Past Psychological History: Anxiety, Depression Smoking Status: Current every day smoker Past Alcohol Use History: Occasional Past Drug Use History: None Reported - Past Family History Mother Family Medical History: Deep Vein Thrombosis (DVT), Pulmonary Embolus General Exam - General Exam Comments Initial Comments: This is a well-developed well-nourished awake alert oriented 3 female Limitations: no limitations General appearance: alert, anxious Head exam: Present: atraumatic, normocephalic, normal inspection Eye exam: Present: normal appearance, PERRL, EOMI. Absent: scleral icterus, conjunctival injection, periorbital swelling ENT exam: Present: normal exam, mucous membranes moist Neck exam: Present: normal inspection, full ROM. Absent: tenderness, meningismus, lymphadenopathy Respiratory exam: Present: normal lung sounds bilaterally. Absent: respiratory distress, wheezes, rales, rhonchi, stridor Cardiovascular Exam: Present: regular rate, normal rhythm, normal heart sounds. Absent: systolic murmur, diastolic murmur, rubs, gallop, clicks GI/Abdominal exam: Present: soft, normal bowel sounds. Absent: distended, tenderness, guarding, rebound, rigid, bruit, pulsatile mass Rectal exam: Present: deferred Extremities exam: Present: normal inspection, full ROM, tenderness (Tennis palpation of the left gluteal region and left low back with pain radiating to the left side when I palpate the right side of the lower lumbar spine. No step- off no crepitation), normal capillary refill. Absent: pedal edema, joint swelling, calf tenderness Back exam: Present: normal inspection, tenderness (As stated above) Neurological exam: Present: alert, oriented X3, CN II-XII intact Psychiatric exam: Present: normal affect, normal mood Skin exam: Present: warm, dry, intact, normal color. Absent: rash Course Vital Signs 11/13/21 13:02 Temperature 98.3 F Pulse Rate 90 Respiratory 20 Rate Blood Pressure 125/65 O2 Sat by Pulse 98 Oximetry - Reevaluation(s) Reevaluation #1: 11/13/21 16:43 Patient initially did not get much relief from medication was given. CAT scan was performed showing no definitive change from previous. He did finally get some relief and did request to go home. Medical Decision Making - Medical Decision Making I did discuss the findings with the patient and her . Patient will be discharged with recommended follow-up with Dr. Mejia. Patient we placed on oral steroids as well as muscle relaxers she already has pain medication at home. Her parameters discussed. - Lab Data Result diagrams: 11/13/21 13:41 11/13/21 13:41 Lab Results 11/13/21 11/13/21 Range/Units 13:41 13:41 WBC 7.2 (3.8-10.6) k/uL RBC 4.68 (3.80-5.40) m/uL Hgb 14.0 (11.4-16.0) gm/dL Hct 44.7 (34.0-46.0) % MCV 95.4 (80.0-100.0) fL MCH 29.8 (25.0-35.0) pg MCHC 31.2 (31.0-37.0) g/dL RDW 13.9 (11.5-15.5) % Plt Count 240 (150-450) k/uL MPV 8.6 Neutrophils % 72 % Lymphocytes % 19 % Monocytes % 4 % Eosinophils % 3 % Basophils % 1 % Neutrophils # 5.2 (1.3-7.7) k/uL Lymphocytes # 1.4 (1.0-4.8) k/uL Monocytes # 0.3 (0-1.0) k/uL Eosinophils # 0.2 (0-0.7) k/uL Basophils # 0.0 (0-0.2) k/uL Sodium 136 L (137-145) mmol/L Potassium 4.2 (3.5-5.1) mmol/L Chloride 104 (98-107) mmol/L Carbon Dioxide 24 (22-30) mmol/L Anion Gap 8 mmol/L BUN 15 (7-17) mg/dL Creatinine 0.90 (0.52-1.04) mg/dL Est GFR (CKD-EPI)AfAm >90 (>60 ml/min/1.73 sqM) Est GFR (CKD-EPI)NonAf 80 (>60 ml/min/1.73 sqM) Glucose 209 H (74-99) mg/dL Calcium 9.1 (8.4-10.2) mg/dL Magnesium 1.7 (1.6-2.3) mg/dL Total Bilirubin 0.5 (0.2-1.3) mg/dL AST 18 (14-36) U/L ALT 12 (4-34) U/L Alkaline Phosphatase 153 H (38-126) U/L Creatine Kinase 119 (30-135) U/L Total Protein 6.9 (6.3-8.2) g/dL Albumin 3.8 (3.5-5.0) g/dL - Radiology Data Radiology results: report reviewed (Imaging reviewed no evidence of acute processes), image reviewed Disposition Clinical Impression: Mechanical back pain Disposition: HOME SELF-CARE Condition: Good Instructions (If sedation given, give patient instructions): Acute Low Back Pain (ED) Prescriptions: predniSONE [Deltasone] 20 mg PO BID #10 tab Orphenadrine [Norflex] 100 mg PO Q12H #7 tab Is patient prescribed a controlled substance at d/c from ED?: No Referrals: Ynes Polanco MD [Primary Care Provider] - 1-2 days
[2021-11-13 13:51] LABS: Basophils % (A) 1 %; Eosinophils # (A) 0.2 k/uL (0-0.7); Eosinophils % (A) 3 %; HCT 44.7 % (34.0-46.0); Lymphocytes # (A) 1.4 k/uL (1.0-4.8); Lymphocytes % (A) 19 %; MCH 29.8 pg (25.0-35.0); MCHC 31.2 g/dL (31.0-37.0); MCV 95.4 fL (80.0-100.0); Mean Platelet Volume 8.6; Monocytes # (A) 0.3 k/uL (0-1.0); Monocytes % (A) 4 %; Neutrophils # (A) 5.2 k/uL (1.3-7.7); Neutrophils % (A) 72 %; Platelet Count 240 k/uL (150-450); RBC 4.68 m/uL (3.80-5.40); RDW 13.9 % (11.5-15.5); WBC 7.2 k/uL (3.8-10.6)
[2021-11-13 14:05] LABS: ALT 12 U/L (4-34); AST 18 U/L (14-36); African American GFR (CKD) >90 (>60 ml/min/1.73 sqM); Albumin 3.8 g/dL (3.5-5.0); Alkaline Phosphatase 153 U/L (38-126); Anion Gap 8 mmol/L; Blood Urea Nitrogen 15 mg/dL (7-17); Calcium 9.1 mg/dL (8.4-10.2); Carbon Dioxide 24 mmol/L (22-30); Chloride 104 mmol/L (98-107); Creatine Kinase 119 U/L (30-135); Glucose 209 mg/dL (74-99); Magnesium 1.7 mg/dL (1.6-2.3); Non-African American GFR(CKD) 80 (>60 ml/min/1.73 sqM); Potassium 4.2 mmol/L (3.5-5.1); Sodium 136 mmol/L (137-145); Total Bilirubin 0.5 mg/dL (0.2-1.3); Total Protein 6.9 g/dL (6.3-8.2)
[2021-11-13] MEDS ORDERED: fentaNYL (PF) 50 MCG/ML 2 ML AMP IV STA (14:16)
[2021-11-13] MEDS ORDERED: DEXAMETHASONE SOD PHOSPHATE 10 MG/ML 1 ML VIAL IVP STA (14:17)
[2021-11-13] MEDS ORDERED: HYDROmorphone 1 MG/ML 1 ML SYRINGE IVP STA ×2 (14:41→15:10)
--- NOTE | 2021-11-13 14:52 | CT ---
EXAMINATION TYPE: CT lumbar spine wo con DATE OF EXAM: 11/13/2021 COMPARISON: MR scan 06/02/2021 HISTORY: Low back pain, History of L5-S1 surgery CT DLP: 826.1 mGycm Automated exposure control for dose reduction was used. The lumbar vertebrae have normal alignment. There is minor spurring anteriorly at L4-5. Facet joints are intact. There is no lumbar paraspinal mass. Sacroiliac joints are intact. There is no compression fracture. There is no significant spinal stenosis. There is a mild posterior disc bulging at L4-5. T he sacroiliac joints appear intact. There is no evidence of focal bone destruction. There is laminect monet defect of L5 on the left side. There is posterior disc herniation at L5-S1 on the left side. IMPRESSION: Previous surgery. Mild posterior disc bulging at L4-5. Posterior left side L5-S1 disc herniation. Mil d degenerative disc space narrowing at L4-5. No fracture seen. No significant change compared to old exam.
[2021-11-13] MEDS ORDERED: ORPHENADRINE 30 MG/ML 2 ML VIAL IVP STA (15:10)
[2021-11-13 16:46] VITALS: BP 111/62; PULSE 65; RESP 18
== END 2021-11-13 17:04 | disposition home or self-care (01) ==
LOC: EC 12:57
DX: M54.59 Other low back pain (principal); E11.9 Type 2 diabetes mellitus without complications; F41.9 Anxiety disorder, unspecified; F32.A Depression, unspecified; F17.200 Nicotine dependence, unspecified, uncomplicated; Z79.4 Long term (current) use of insulin; Z90.49 Acquired absence of other specified parts of digestive tract
CPT/HCPCS: 99284; 96374; 96375 ×4; 96376; 36415; 80053; 82550; 83735; 85025; 72131; J1100; J2360; J3010; J1170; J1885

== ENCOUNTER → 2022-01-18 | Outpatient (CLI) | payer BC ==
--- NOTE | 2022-01-18 10:52 | MR ---
EXAMINATION TYPE: MR lumbar spine wo con DATE OF EXAM: 01/18/2022 COMPARISON: MR MRI 01/28/2021 HISTORY: Low back pain that radiates down left leg for 2 years. History of surgery March 2021 & May 2021. TECHNIQUE: Multiplanar, multisequence images of the lumbar spine were acquired without IV contrast. L1-L2: Normal disc appearance without desiccation. No herniation, protrusion or disc bulging. No ca nal stenosis is present. Foramina are patent bilaterally. L2-L3: Normal disc appearance without desiccation. No herniation, protrusion or disc bulging. No ca nal stenosis is present. Foramina are patent bilaterally. L3-L4: Normal disc appearance without desiccation. No herniation, protrusion or disc bulging. No ca nal stenosis is present. Foramina are patent bilaterally. L4-L5: There is a posterior disc herniation anteriorly which extends laterally on the left causing an terior mass effect on the thecal sac, some mild spinal stenosis. There is likely encroachment on the left lateral recess, mass effect on the left L5 nerve root with extension of the disc material candy mixer ior to the L5 vertebral body superior endplate. Circumferential extension endplate disc complex cause s only minimal encroachment on the inferior aspect of the foramen on the left and right. L5-S1: Left posterior paracentral disc herniation causes some encroachment on the lateral recess, mas s effect on the anterior thecal sac and possibly the left S1 nerve root. Circumferential extension en dplate disc complex is present bilaterally causing foraminal encroachment. No significant spinal sten osis. Lumbar segments show preserved height, minimal retrolisthesis grade 1 L4-5. Loss of disc height sign al at L4-5, L5-S1 again noted, there is associated spondylosis and endplate discogenic marrow signal change, probable hemangioma present in the S1 vertebral body is unchanged. No paraspinal masses are identified. Conus medullaris has a normal appearance. There is a mild spinal curvature. IMPRESSION: Degenerative disc disease as described, disc herniations L4-5, L5-S1
== END | disposition home or self-care (01) ==
LOC: RADMRIMAIN 09:31
PROVIDERS: ATTEND Orthopaedic Surgery Orthopaedic Surgery of the Spine
DX: M51.17 Intervertebral disc disorders with radiculopathy, lumbosacral region (principal)
CPT/HCPCS: 72148

== ENCOUNTER → 2022-01-20 | Outpatient (CLI) | payer BC ==
[2022-01-20 09:29] VITALS: BP 106/70; PULSE 84; RESP 18; TEMP 98.2
--- NOTE | 2022-01-20 09:49 | P.PN ---
Subjective Progress Note Date: 01/20/22 Principal diagnosis: A 41 yr old female with a history of severe and chronic low back pain secondary to lumbar degenerative disc diseases, spinal stenosis posterior disc bulges and L L5/ S1 encroachment presents today for evaluation of increased lower back pain s/p PT sessions. Pain level is 4 out of 10 in intensity, constant, dull, achy in the lower aspects of the lumbar spine with radiation of pain to the left hip and left knee. Pain is provoked by bending, lifting, walking or standing for periods of 30 minutes or more. Pain is alleviated with educations, alternating ice and heat which provided minimal relief, physical therapy in December 2021 for 2 weeks which aggravated the pain, home stretching regimen as tolerated and rest. Interventional pain procedures completed include L TFESI L5-S1 #2 Patient is currently on [place] from Dr Mejia & Tramadol from Dr Hernandez Patient denies any side effects of the medication(s), denies excessive drowsiness or sleepiness, denies suicidal ideation and reports that the current pain medication is helping to control the pain and improve activities of daily living. Patient denies any motor or sensory deficits. Patient denies any fever or night sweats, denies any change in the bowel movements or urination. Physical Examination: -Constitutional: Cooperative. Not in acute distress . -HEENT: Neck is supple. No lymphadenopathy. No thyromegaly. Normal thyroid size. Eyes: No ptosis , no icterus, no photophobia. ENT: No auditory deficits. Normal oropharynx. No Thrush. - Respiratory: Chest clear to auscultations bilaterally. No wheezing. No rhonchi. - Cardiovascular: Regular rate and rhythm. S1 / S2 , no S3 , no S4. - Gastrointestinal: Abdomen soft no tenderness. Bowel sounds positive in all four quadrants. No organomegaly. - Genitourinary: Deferred. - Neurologic: Cranial nerve II to XII intact. No focal neurological deficits. - Psychatric: Alert & oriented x 3. Matching mood & appropriate affect. Judgment and insight intact. - Lymphatic: No Lymphadenopathy. - Musculoskeletal: Cervical spine: Muscle bulk/ tone/ strength in the bilateral upper extremities normal. Facet loading test cervical area positive. Lumbar spine: Motor bulk/ tone/ strength lower extremities , thigh and legs : 5/5 Deep tendon reflexes : Normal Knee Jerk. Normal Ankle Jerk . Vertebral body tenderness to palpation over Lumbar Facet Loading Test positive on the L L4-L5, L5-S1 Straight Leg Raise: positive at 30 degrees right side/ left side Gaenslen's Test positive Sacral spine : Severe tenderness over the Sacroiliac joint: right side / left side Range of motion: Flexion of the lumbar spine <60 degrees Range of motion: Extension of the lumbar spine <20 degrees Gaenslen's Test positive Ruchi test: positive right side / left side Imaging: MRI of the Lumbar Spine without contrast from 01/18/22 reviewed. Assessment and plan: Chronic low back pain secondary to lumbar degenerative disc disease, spinal stenosis, posterior disc bulges and L L5/S1 encroachment Recommendation of facet blocks of the medial branches left L4-L5, L5-S1. May need a series of treatments, up until RFA, to obtain optimal pain relief. Risks, benefits of procedure discussed and patient verbalized understanding. Patient has a medical history of diabetes. Patient denies anticoagulants use. Protocol for discontinuation/ continuation of medications miguel procedure discussed. All patient questions answered MAPS reviewed and it was appropriate. I have spent 31 minutes on patient care today. Dr Funes was available by phone for the evaluation of this patient. The time was used to review the medical records including relevant urine studies and Prescription history (MAPs), review of the available imaging, evaluation and examination of the patient, coordination of care with the medical staff and if applicable referring physicians, as well as creation of the medical record Objective - Vital Signs Vital signs: Vital Signs Temp 98.2 F 01/20/22 09:19 Pulse 84 01/20/22 09:19 Resp 18 01/20/22 09:19 BP 106/70 01/20/22 09:19 Pulse Ox 94 L 01/20/22 09:19 PQRS Measure Charge Sheet Mode of Arrival: Ambulatory - Pain Location Lower Back Non-Pharmacological Interventions: Heat, Home Exercise, Ice, Inactivity, Physical Therapy, Position/Reposition, Stretching Pharmacological Interventions: Epidural, PRN Medication PQRS Narrative: Blood Pressure 106/70 Pain Intensity [Lower Back] 4 Scale Used Numeric (1 - 10) Hx Alcohol Use (MH) No Home Medications: Ambulatory Orders Citalopram Hydrobromide [CeleXA] 20 mg PO QAM 03/10/21 Diphenoxylate HCl/Atropine [Lomotil 2.5-0.025 mg Tablet] 2 tab PO QAM 03/10/21 HYDROcodone/APAP 7.5-325MG [[place] 7.5-325] 1 tab PO BID PRN 03/10/21 Insulin Aspart (For Pump) [NovoLOG (For Pump)] 0.01 unit SQ-PUMP CONTINUOUS 03/10/21 Melatonin 10 mg PO HS 03/10/21 lamoTRIgine [LaMICtal] 100 mg PO QAM 03/10/21 traZODone HCL 100 mg PO HS 03/10/21 HYDROcodone/APAP 7.5-325MG [[place] 7.5-325] 1 tab PO Q4H PRN #42 tab 04/21/21 HYDROcodone/APAP 7.5-325MG [[place] 7.5-325] 1 tab PO Q4H PRN #42 tab 06/09/21 ALPRAZolam [Xanax] 1 tab PO DAILY PRN 01/20/22 traMADol HCL 1 tab PO Q8HR PRN 01/20/22
== END ==
LOC: PNWHC3 08:53
PROVIDERS: ATTEND Specialist
DX: M51.36 Other intervertebral disc degeneration, lumbar region (principal); M48.061 Spinal stenosis, lumbar region without neurogenic claudication; G89.29 Other chronic pain; E11.9 Type 2 diabetes mellitus without complications; Z79.4 Long term (current) use of insulin
CPT/HCPCS: 99211

== ENCOUNTER 2022-02-25 11:31 | Day surgery (SDC) | payer BC ==
[~2022-02-25 11:31] MED LIST changes: -CEFAZOLIN IRRIGATION PRN; +LACTATED RINGERS 1,000 ML IV SCH; -SODIUM CHLORIDE 0.9% IRRIGATION PRN; -ceFAZolin 1,000 MG in SODIUM CHLORIDE 0.9% IRRIGATIO 1,000 ML IRRIGATION PRN
[2022-02-25 11:55] VITALS: TEMP 98
[2022-02-25 12:06] LABS: Glucose,Whole Blood 198 mg/dL (75-99)
[2022-02-25] MEDS ORDERED: MIDAZOLAM 2 MG/2 ML VIAL ONE (12:16)
[2022-02-25] MEDS ORDERED: TRIAMCINOLONE ACETONIDE 40 MG/ML 1 ML VIAL ONE (12:16)
[2022-02-25] MEDS ORDERED: fentaNYL (PF) 50 MCG/ML 2 ML AMP ONE (12:16)
[2022-02-25] MEDS ORDERED: ROPIVACAINE 5MG/ML 20ML VIAL ONE (12:16)
--- NOTE | 2022-02-25 12:30 | P.PCN ---
Date of Procedure: 02/25/22 Description of Procedure: Pre- and Post-operative Diagnosis: Lumbar facet arthropathy, and lumbar spondylosis without myelopathy. Procedure: #1 left-sided Diagnostic Medial Branch Block at Lumbar 4/5 and #1 left-sided diagnostic dorsal ramus block at Lumbar 5/ sacral ala levels (total 2 levels) Surgeon: Jeremy Isaacs Anesthesia: Local: 1% Lidocaine, IV sedation : Versed 2 mg and fentanyl 150 g. Complications: None EBL: None Specimen removed: None Fluoroscopic image: Saved to patient electronic medical records. Indications for Procedure: The patient is well known to pain clinic for his chronic low back pain management. The lumbar facet loading test was positive with a clinical diagnosis of lumbar facet arthropathy. Failed with conservative therapy. Came here for interventional help for better pain relief. Procedure and Findings: The patient was seen and examined. The written informed consent was obtained after explaining the risks, benefits and alternatives of the procedure to the patient. The patient was brought to the procedure room and was placed in the prone position on the operating table table. A pillow was placed under the abdomen to reduce lumbar lordosis. Standard anesthesia monitoring was done through out the procedure. The skin preparation was done with ChloraPrep X1, and draping was done in usual sterile fashion. Sterile technique was observed throughout the procedure. Under fluoroscopic guidance, left the Lumbar 4, 5 and Sacral ala levels were identified in the AP view. For lumbar L4, and L5 levels the targeting area of superior articular process, and close to the most medial and superior aspect of transverse process identified, marked. 1ml of 1% Lidocaine was used with a 25 gauge needle to achieve adequate local anesthesia of the skin and subcutaneous tissue at each level. A 22 gauge 3.5 inch spinal needle was placed and advanced targeting area which was close to the most medial and superior aspect of the transverse process. For Lumbar 5/ sacral ala level, fluoroscope was used in the anteroposterior view, and the needle tip was placed at the superior and most medial part of sacral ala close to the superior articular process. A bony contact was obtained and needle tip position was confirmed at anteroposterior view. No paresthesia was noted. A negative aspiration was confirmed. 1 ml solution per level was injected, the block solution containing 2 ml of 0.5% ropivacaine preservative-free solution mixed with 40 MG of Kenalog. The needles were removed intact. Lumbar area was cleaned and bandages were applied. Disposition : The patient tolerated the procedure very well. The patient was transferred to the recovery room and remained stable until discharged home. The patient was given detailed discharge instructions for infection, bleeding, and increased pain at the injection site, and was advised to seek immediate medical attention should significant side effects develop. The patient will be scheduled with Pain Clinic within 4 weeks duration.
[2022-02-25] MEDS ORDERED: IV FLUID CONTINUATION 800 ML IV ONE (12:31)
[2022-02-25 12:47] VITALS: BP 106/56; PULSE 86; RESP 18
--- NOTE | 2022-02-25 13:21 | FL ---
Fluoroscopy HISTORY: Pain 2 seconds fluoroscopy time supplied to the referring clinician. 1 intraoperative C-arm images docume nt the procedure. See dictated report from anesthesia.
== END 2022-02-25 13:07 | disposition home or self-care (01) ==
LOC: ORPAIN 11:31
DX: M47.816 Spondylosis without myelopathy or radiculopathy, lumbar region (principal); G89.29 Other chronic pain
CPT/HCPCS: 64493; 64494; 81025; J2250; J3301; J3010; J2795

== ENCOUNTER → 2022-03-07 | Outpatient (CLI) | payer BC ==
--- NOTE | 2022-03-07 09:54 | P.PN ---
Subjective Progress Note Date: 03/07/22 Principal diagnosis: A 41 yr old female with a history of severe and chronic low back pain secondary to lumbar degenerative disc diseases and lumbar spondylosis with facet arthropathy presents today for evaluation s/p L L4-L5, L5-S1 #1. She states she experienced only 50% pain relief s/p procedure. Pain level is currently at 4 out of 10 in intensity, localized in the left aspect of the lumbar spine, constant, achy/dull in character with sharp, shooting pain down the left lower extremity. Pain is provoked by lifting, twisting, bending and any other activity. Pain is alleviated with medications ([place] and tramadol), physical therapy in [place] 2021 which worsened pain, heat, ice, repositioning and rest. Interventional pain procedures completed include NAPOLEON JOSEPH/ALEXIS L4-L5, L5-S1 #1 Patient is currently on [place] and Tramadol Patient denies any side effects of the medication(s), denies excessive drowsiness or sleepiness, denies suicidal ideation and reports that the current pain medication is helping to control the pain and improve activities of daily living. Patient denies any motor or sensory deficits. Patient denies any fever or night sweats, denies any change in the bowel movements or urination. Physical Examination: -Constitutional: Cooperative. Not in acute distress . -HEENT: Neck is supple. No lymphadenopathy. No thyromegaly. Normal thyroid size. Eyes: No ptosis , no icterus, no photophobia. ENT: No auditory deficits. Normal oropharynx. No Thrush. - Respiratory: Chest clear to auscultations bilaterally. No wheezing. No rhonchi. - Cardiovascular: Regular rate and rhythm. S1 / S2 , no S3 , no S4. - Gastrointestinal: Abdomen soft no tenderness. Bowel sounds positive in all four quadrants. No organomegaly. - Genitourinary: Deferred. - Neurologic: Cranial nerve II to XII intact. No focal neurological deficits. - Psychatric: Alert & oriented x 3. Matching mood & appropriate affect. Judgment and insight intact. - Lymphatic: No Lymphadenopathy. - Musculoskeletal: Cervical spine: Muscle bulk/ tone/ strength in the bilateral upper extremities normal. Facet loading test cervical area positive. Lumbar spine: Motor bulk/ tone/ strength lower extremities , thigh and legs : 5/5 Deep tendon reflexes : Normal Knee Jerk. Normal Ankle Jerk . Vertebral body tenderness to palpation over L4 Lumbar Facet Loading Test positive Straight Leg Raise: positive at 30 degrees right side/ left side Gaenslen's Test positive Sacral spine : Severe tenderness over the Sacroiliac joint: right side / left side Range of motion: Flexion of the lumbar spine <60 degrees Range of motion: Extension of the lumbar spine <20 degrees Gaenslen's Test positive Ruchi test: positive right side / left side Assessment and plan: Chronic low back pain secondary to lumbar degenerative disc disease , lumbar spondylosis with facet arthropathy without myelopathy Recommendation of PT 3 times per week x 6 weeks to focus on lumbar traction and decompression. Pt is disinterested in TPIs of the Lumbar spine at this time. She did not experience sufficient pain relief s/p procedure and we will not continue with a 2nd facet block of the medial branches. She may return to her orthopedic surgeon to explore other treatment options. All patient questions answered MAPS reviewed and it was appropriate. I have spent 31 minutes on patient care today. Dr Funes was available by phone for the evaluation of this patient. The time was used to review the medical records including relevant urine studies and Prescription history (MAPs), review of the available imaging, evaluation and examination of the patient, coordination of care with the medical staff and if applicable referring physicians, as well as creation of the medical record PQRS Measure Charge Sheet PQRS Narrative: Hx Alcohol Use (MH) No Home Medications: Ambulatory Orders Citalopram Hydrobromide [CeleXA] 20 mg PO QAM 03/10/21 Diphenoxylate HCl/Atropine [Lomotil 2.5-0.025 mg Tablet] 2 tab PO QAM 03/10/21 Insulin Aspart (For Pump) [NovoLOG (For Pump)] 0.01 unit SQ-PUMP CONTINUOUS 03/10/21 Melatonin 10 mg PO HS 03/10/21 lamoTRIgine [LaMICtal] 100 mg PO QAM 03/10/21 traZODone HCL 100 mg PO HS 03/10/21 HYDROcodone/APAP 7.5-325MG [[place] 7.5-325] 1 tab PO Q4H PRN #42 tab 04/21/21 ALPRAZolam [Xanax] 1 tab PO DAILY PRN 01/20/22 traMADol HCL 1 tab PO Q8HR PRN 01/20/22
[2022-03-07 09:57] VITALS: BP 111/72; PULSE 86; RESP 18; TEMP 98.3
== END ==
LOC: PNWHC3 09:23
PROVIDERS: ATTEND Specialist
DX: M51.36 Other intervertebral disc degeneration, lumbar region (principal); M47.816 Spondylosis without myelopathy or radiculopathy, lumbar region; G89.29 Other chronic pain
CPT/HCPCS: 99211

== ENCOUNTER 2022-06-29 10:21 | Emergency (ER) | payer BC ==
[2022-06-29 10:33] VITALS: TEMP 98
[2022-06-29 12:16] VITALS: RESP 16
[2022-06-29] MEDS ORDERED: KETOROLAC 15 MG/ML 1 ML VIAL IVP STA (12:22)
[2022-06-29] MEDS ORDERED: HYDROmorphone 0.5 MG/0.5 ML SYRINGE IVP STA (12:22)
[2022-06-29] MEDS ORDERED: methylPREDNISolone SOD SUCCI 125 MG/2 ML VIAL IV STA (12:23)
[2022-06-29] MEDS ORDERED: HYDROmorphone 1 MG/ML 1 ML SYRINGE IVP STA (12:23)
--- NOTE | 2022-06-29 12:27 | ED ---
General Adult HPI - General Chief complaint: Back Pain/Injury Stated complaint: back pain Time Seen by Provider: 06/29/22 12:00 Source: patient, RN notes reviewed, old records reviewed Mode of arrival: ambulatory Limitations: no limitations - History of Present Illness Initial comments: This is a 41-year-old female with past medical history for sciatica. Patient states she had her last MRI in January. Patient states since that she's had no trauma or injury that she knows of. Patient states she does do quite a bit of lifting at work. Patient states she woke up this morning with significant left lower back pain radiating down her left leg. Patient denies any numbness or weakness. Patient denies any perineum numbness. Patient denies any recent fever chills per patient denies any other problems. - Related Data Home Medications Medication Instructions Recorded Confirmed Citalopram Hydrobromide [CeleXA] 20 mg PO QAM 03/10/21 03/07/22 Diphenoxylate HCl/Atropine 2 tab PO QAM 03/10/21 03/07/22 [Lomotil 2.5-0.025 mg Tablet] Insulin Aspart (For Pump) [NovoLOG 0.01 unit SQ-PUMP CONTINUOUS 03/10/21 (For Pump)] Melatonin [Melatonin ER] 10 mg PO HS 03/10/21 03/07/22 lamoTRIgine [LaMICtal] 100 mg PO QAM 03/10/21 03/07/22 traZODone HCL 100 mg PO HS 03/10/21 03/07/22 ALPRAZolam [Xanax] 1 tab PO DAILY PRN 01/20/22 03/07/22 traMADol HCL 1 tab PO Q8HR PRN 01/20/22 03/07/22 Previous Rx's Medication Instructions Recorded HYDROcodone/APAP 7.5-325MG [[place] 1 tab PO Q4H PRN #42 tab 04/21/21 7.5-325] predniSONE [Deltasone] 40 mg PO DAILY #8 tab 06/29/22 Allergies Allergy/AdvReac Type Severity Reaction Status Date / Time No Known Allergies Allergy Verified 06/29/22 10:33 Review of Systems ROS Statement: Those systems with pertinent positive or pertinent negative responses have been documented in the HPI. ROS Other: All systems not noted in ROS Statement are negative. Past Medical History Past Medical History: Diabetes Mellitus, Musculoskeletal Disorder Additional Past Medical History / Comment(s): IBS. Back pain, herniated disc History of Any Multi-Drug Resistant Organisms: None Reported Past Surgical History: Breast Surgery, Cholecystectomy, Orthopedic Surgery Additional Past Surgical History / Comment(s): gall bladder and breast augmentation. Pain proc Past Anesthesia/Blood Transfusion Reactions: No Reported Reaction Past Psychological History: Anxiety, Depression Smoking Status: Current every day smoker - Past Family History Mother Family Medical History: Deep Vein Thrombosis (DVT), Pulmonary Embolus General Exam - General Exam Comments Initial Comments: GENERAL: Patient is well-developed and well-nourished. Patient is nontoxic and well- hydrated and is in moderate distress. ENT: Neck is soft and supple. No significant lymphadenopathy is noted. Oropharynx is clear. Moist mucous membranes. Neck has full range of motion without eliciting any pain. EYES: The sclera were anicteric and conjunctiva were pink and moist. Extraocular movements were intact and pupils were equal round and reactive to light. Eyelids were unremarkable. PULMONARY: Unlabored respirations. Good breath sounds bilaterally. No audible rales rhonchi or wheezing was noted. CARDIOVASCULAR: There is a regular rate and rhythm without any murmurs gallops or rubs. ABDOMEN: Soft and nontender with normal bowel sounds. SKIN: Skin is clear with no lesions or rashes and otherwise unremarkable. NEUROLOGIC: Patient is alert and oriented x3. Cranial nerves II through XII are grossly intact. Motor and sensory are also intact. Normal speech, volume and content. Symmetrical smile. Straight leg test positive at 30 and the left leg MUSCULOSKELETAL: Normal extremities with adequate strength and full range of motion. LYMPHATICS: No significant lymphadenopathy is noted PSYCHIATRIC: Normal psychiatric evaluation. Limitations: no limitations Course Vital Signs 06/29/22 06/29/22 06/29/22 10:28 12:11 13:18 Temperature 98.0 F Pulse Rate 85 59 L 78 Respiratory 20 16 16 Rate Blood Pressure 97/59 115/57 155/78 O2 Sat by Pulse 95 98 98 Oximetry Medical Decision Making - Medical Decision Making EKG shows sinus bradycardia 55 bpm MN interval 243 QRS 97 QT interval 420 QTC is 419. Patient's EKG shows no ST segment elevation or depression. Patient received Toradol Solu-Medrol and Dilaudid initially. I went back and reevaluated the patient she stated her pain was slightly improved but not completely. I gave the patient 2.5 mg of droperidol. I reevaluated the patient and she was feeling much better and wanted to be discharged home to follow-up with her primary medical care doctor or her surgeon. Disposition Clinical Impression: Sciatica Disposition: HOME SELF-CARE Condition: Good Instructions (If sedation given, give patient instructions): Sciatica (ED) Prescriptions: predniSONE [Deltasone] 40 mg PO DAILY #8 tab Is patient prescribed a controlled substance at d/c from ED?: No Referrals: Ynes Polanco MD [Primary Care Provider] - 1-2 days Time of Disposition: 15:05
[2022-06-29 15:23] VITALS: BP 135/68; PULSE 65
== END 2022-06-29 15:23 | disposition home or self-care (01) ==
LOC: EC 10:21
DX: M54.32 Sciatica, left side (principal); E11.9 Type 2 diabetes mellitus without complications; F41.9 Anxiety disorder, unspecified; F32.A Depression, unspecified; F17.200 Nicotine dependence, unspecified, uncomplicated; Z79.899 Other long term (current) drug therapy
CPT/HCPCS: 93005; 99283; 96374; 96375 ×3; J2930; J1170; J1885; J1790

== ENCOUNTER → 2022-07-29 | Outpatient (CLI) | payer BC ==
[2022-07-29 12:35] LABS: INR 0.8 (<1.2); Prothrombin Time 9.5 sec (9.0-12.0)
[2022-07-29 12:43] LABS: Partial Thromboplastin Time 19.9 sec (22.0-30.0)
[2022-07-29 18:19] LABS: Basophils # (A) 0.03 X 10*3/uL (0.00-0.10); Basophils % (A) 0.3 %; Eosinophils # (A) 0.07 X 10*3/uL (0.04-0.35); Eosinophils % (A) 0.8 %; HCT 42.1 % (37.2-46.3); HGB 13.6 g/dL (12.0-15.0); Immature Grans, Automated 0.2 %; Lymphocytes # (A) 1.86 X 10*3/uL (0.90-5.00); Lymphocytes % (A) 21.3 %; MCH 30.5 pg (27.0-32.0); MCHC 32.3 g/dL (32.0-37.0); MCV 94.4 fL (80.0-97.0); Mean Platelet Volume 12.9 fL (9.5-12.2); Monocytes # (A) 0.43 X 10*3/uL (0.20-1.00); Monocytes % (A) 4.9 %; NRBC Per 100 WBC 0 /100 WBCS (0.0-0.0); Neutrophils # (A) 6.31 X 10*3/uL (1.80-7.70); Neutrophils % (A) 72.5 %; Platelet Count 209 X 10*3/uL (140-440); RBC 4.46 X 10*6/uL (4.10-5.20); RDW 12.9 % (11.5-14.5); WBC 8.72 X 10*3/uL (4.50-10.00)
[2022-07-29 18:38] LABS: ALT 9 U/L (8-44); AST 12 U/L (13-35); African American GFR (CKD) 77.1 (60.0-200.0); Albumin 4.2 g/dL (3.8-4.9); Albumin/Globulin Ratio 1.53 (1.60-3.17); Alkaline Phosphatase 101 U/L (41-126); BUN/Creat Ratio 17.09 Ratio (12.00-20.00); Blood Urea Nitrogen 17.6 mg/dL (9.0-27.0); Calcium 9.5 mg/dL (8.7-10.3); Carbon Dioxide 25.1 mmol/L (20.0-27.5); Chloride 102 mmol/L (96-109); Chol/HDL Ratio 2.68 Ratio; Globulin 2.7 g/dL (1.6-3.3); Glucose 92 mg/dL (70-110); LDL Cholesterol,Calculated 107.8 mg/dL (0.0-131.0); Non-African American GFR(CKD) 66.5 (60.0-200.0); Potassium 4.6 mmol/L (3.5-5.5); Sodium 140 mmol/L (135-145); Total Protein 6.9 g/dL (6.2-8.2)
[2022-07-29 22:10] LABS: Amorphous Sediment,Urine Present /LPF (None Seen); Appearance,Urine Turbid (Clear); Bacteria,Urine 3+ /HPF (None Seen); Bilirubin,Urine Small (Negative); Blood,Urine Negative (Negative); Calcium Oxalate Crystals,Urine Present /LPF (None Seen); Color,Urine Dark Yellow (Yellow); Ketones,Urine 40 mg/dL (Negative); Nitrite,Urine Negative (Negative); PH, Urine 5.5 (5.0-8.0); Specific Gravity,Urine 1.035 (1.001-1.030)
== END | disposition home or self-care (01) ==
LOC: LABWHC1 10:09
PROVIDERS: ATTEND Internal Medicine
DX: E11.9 Type 2 diabetes mellitus without complications (principal); F33.1 Major depressive disorder, recurrent, moderate
CPT/HCPCS: 36415; 80053; 80061; 81001; 82043; 82570; 83036; 84439; 84443; 85025; 85610; 85730; 87070

== ENCOUNTER → 2022-07-29 | Outpatient (CLI) | payer BC ==
--- NOTE | 2022-07-29 11:51 | XR ---
EXAMINATION TYPE: XR chest 2V DATE OF EXAM: 07/29/2022 COMPARISON: 04/12/2021 TECHNIQUE: PA and lateral views submitted. HISTORY: Presurgical testing FINDINGS: The lungs are clear and there is no pneumothorax, pleural effusion, or focal pneumonia. Heart size normal. No overt failure. Hypertrophic changes of the spine. Surgical clips in the abdomen. Partial e ventration right hemidiaphragm. Soft tissue overlap overlying the mid and lower lung zone. IMPRESSION: 1. No acute process.
== END | disposition home or self-care (01) ==
LOC: RADXRMAIN 10:13
PROVIDERS: ATTEND Orthopaedic Surgery Orthopaedic Surgery of the Spine
DX: Z01.818 Encounter for other preprocedural examination (principal)
CPT/HCPCS: 71046

== ENCOUNTER 2022-08-03 09:51 | Inpatient (IN) | payer BC ==
[2022-08-02 12:36] VITALS: BMI 27.6
[~2022-08-03 09:51] MED LIST changes: +DEXAMETHASONE SOD PHOSPHATE 4 MG/ML 1 ML VIAL IV ONE; -LACTATED RINGERS 1,000 ML IV SCH; +LIDOCAINE 1% (10MG/ML) FOR IV START INTRADERMA PRN; +MIDAZOLAM 2 MG/2 ML VIAL IV PRN; +ONDANSETRON 4 MG/2 ML VIAL IVP ONE; +ceFAZolin 1,000 MG in SODIUM CHLORIDE 0.9% IRRIGATIO 1,000 ML IRRIGATION PRN
[2022-08-03] MEDS: LACTATED RINGERS 1,000 ML IV SCH (10:19)
[2022-08-03 10:34] LABS: Glucose,Whole Blood 168 mg/dL (70-110)
[2022-08-03] MEDS ORDERED: ROCURONIUM 10 MG/ML (5 ML VIAL) IV ONE (12:08)
[2022-08-03] MEDS ORDERED: KETAMINE 10 MG/ML 20 ML VIAL ONE (12:08)
[2022-08-03] MEDS ORDERED: fentaNYL (PF) 50 MCG/ML 2 ML AMP ONE (12:08)
[2022-08-03] MEDS ORDERED: MIDAZOLAM 2 MG/2 ML VIAL ONE (12:08)
[2022-08-03] MEDS ORDERED: GLYCOPYRROLATE 0.2 MG/ML 2 ML VIAL ONE (12:08)
[2022-08-03] MEDS ORDERED: HYDROmorphone (PF) 1 MG/ML ONE (12:08)
[2022-08-03] MEDS ORDERED: SUCCINYLCHOLINE CHLORIDE 200 MG/10 ML VIAL IV ONE (12:08)
[2022-08-03] MEDS ORDERED: PHENYLEPHRINE-0.9% NACL SYG 1,000 MCG/10 ML SYRINGE ONE (12:08)
[2022-08-03] MEDS ORDERED: SODIUM CHLORIDE 0.9% IRRIG 1,000 ML BTL IRRIGATION ONE (12:08)
[2022-08-03] MEDS ORDERED: LIDOCAINE 2% INJ 20 MG/ML (2 ML VIAL) ONE (12:08)
[2022-08-03] MEDS ORDERED: PROPOFOL 10 MG/ML 20 ML VIAL IV ONE (12:08)
[2022-08-03] MEDS ORDERED: HEPARIN SODIUM,PORCINE 10,000 UNIT/ML 1 ML VIAL ONE (12:08)
[2022-08-03] MEDS ORDERED: BUPIVACAINE (PF) 0.5% 30 ML VIAL SQ ONE (13:01)
[2022-08-03] MEDS ORDERED: THROMBIN (BOVINE) 5,000 UNIT VIAL TOPICAL ONE (13:01)
[2022-08-03] MEDS ORDERED: LIDOCAINE 1%-EPI 1:100,000 20 ML VIAL SQ ONE (13:01)
[2022-08-03] MEDS ORDERED: GELATIN SPONGE,ABSORB (LARGE) 1 EACH SPONGE TOPICAL ONE (13:01)
[2022-08-03] MEDS ORDERED: LACTATED RINGERS 1,000 ML IV ONE (14:32)
[2022-08-03] MEDS ORDERED: HYDROcodone/APAP 5-325MG 1 EACH TAB PO PRN (15:52)
[2022-08-03] MEDS ORDERED: BENZOCAINE/MENTHOL LOZENG 1 EACH LOZENGE MUCOUS MEM PRN (15:52)
[2022-08-03] MEDS ORDERED: SENNOSIDES-DOCUSATE SODIUM 1 EACH TAB PO PRN (15:53)
[2022-08-03] MEDS ORDERED: ONDANSETRON 4 MG/2 ML VIAL IVP PRN (15:53)
[2022-08-03] MEDS ORDERED: ALPRAZolam 0.25 MG TAB PO PRN (15:57)
--- NOTE | 2022-08-03 16:06 | P.OP ---
Date of Procedure: 08/03/22 Preoperative Diagnosis: Massive disc herniation L4 5, recurrent disc herniation L5-S1, lower extremity, history of prior laminectomy discectomy L5-S1, degenerative disc disease, facet arthrosis, lower extremity radiculopathy, lower extremity weakness Postoperative Diagnosis: Same Anesthesia: GETA Pathology: none sent Condition: stable Disposition: PACU Description of Procedure: DESCRIPTION OF PROCEDURE(S): BRIEF OPERATIVE NOTE Preoperative Diagnosis: Massive disc herniation L4 5, recurrent disc herniation L5-S1, lower extremity, history of prior laminectomy discectomy L5-S1, degenerative disc disease, facet arthrosis, lower extremity radiculopathy, lower extremity weakness Postoperative Diagnosis: Same Procedure: Revision Laminectomy and decompression L5-S1 Laminectomy and decompression L4 [address] navigation aided Minimally invasive Posterior lateral decompression and fusion L4 5 L5-S1 Minimally invasive Transforaminal lumbar interbody fusion for a 360 fusion L4 5 L5-S1 Discectomy for decompression L4 5 L5-S1 Placement of interbody graft L4 5 L5-S1 Use of computer navigation for fusion Local autogenous bone grafting Aspiration of bone marrow from the vertebral body pedicle at L4 on the right Use of bone graft extenders Surgeon: Dr. Mejia Airset Molder: David JACKMAN who is present throughout the entire the case persistence during positioning, dissection, exposure, visualization, and all crucial elements of the case as well as closure. Anesthesia: General anesthesia per Dr. Turcios Estimated blood loss: Approximately 250 mL Complications: None apparent Components implanted: K2M minimally invasive [place] pedicle screw system withscrews measuring 6.5 mm in diameter to rods one Guthrie interbody cage with 10 mL of osteo amp bio4 bone graft substitute and 30 mL of the BX bone fibers to supplement the local autogenous bone graft and bone marrow aspirate Disposition: To recovery room in good stable condition. OPERATIVE INDICATIONS The patient has had severe issues at their lower extremity in her lower back over the past several years that undergone laminectomy and discectomy in the past with good relief of her lower extremity symptoms. However over the past several months the patient has been greatly troubled with significant worsening over the past several months. Over the past few months the patient had pain at their back and their lower extremities. The patient is having severe radicular symptoms at their lower extremity with weakness. The patient is having significant pain in their back. They are unable to obtain any comfort. We did aggressive conservative treatment with medications therapy and interventional pain management however thery were not having any relief. She is found to have a large disc herniation at L4 5 which was new for her CONTRALATERAL side from her prior issues and correlated well with her lower extremity symptoms as well as recurrent disc herniation at L5-S1 on the left side. With the size of the disc herniation at her prior surgeries and her failed conservative measures I thought that pursuing surgery with further destabilize level particularly given the amount of disc degeneration and disc height loss at those levels. I felt that she would have accommodation of progressive and iatrogenic instability at L4 5 and L5-S1 given her surgery and the status of her disks and I felt that she would require stabilization or have very high risk of recurrence of her stenosis and instability at her lower back. I felt that she would require decompression with fusion.. The patient has been through conservative treatment. We discussed various treatment options including surgery, and the patient wishes to proceed with surgery We discussed the risk, patient's alternatives and benefits of surgery including but not limited to, risk of bleeding risk of infection, risk of need for further surgery, risk of decreased, loss of motion, muscle function, malunion nonunion, hardware failure, nerve damage, paralysis, heart attack, blindness and . They understood issues with the current pandemic and the possibility of exposure. OPERATIVE SUMMARY After discussing all the risks, patient alternatives and benefits at length, the patient elected to proceed with surgical intervention, signed informed consent, and presented for their procedure. The patient was seen and examined in the preoperative holding area and the surgical site was marked. The patient was given antibiotics and brought to the operating room. The patient was sedated and intubated by anesthesia in standard fashion. The patient was positioned on to the operating room table in a prone position on the appropriate frame which was well-padded and well molded. We were careful to pad any bony prominences and pressure points. We were careful to maintain the patient's cervical spine and good neutral alignment and position throughout. The patient was prepped and draped in a normal standard fashion. An appropriate timeout and keystone protocol performed. We were able to proceed with the surgery. The local wound area was infiltrated with local anesthetic. Over the right iliac crest I was able to make small stab incisions and establish a guidepin screw fixation to the iliac crest 2. I was able place the computer referencing device over the guidepins to establish an appropriate reference point for the Ziem CT navigation. We then were able to place patient in an appropriate drape and do a navigation spin for visualization and 3-D reconstruction of the lumbar spine. I was able utilize C-arm guidance and navigation to establish appropriate position over the pedicles bilaterally at the appropriate levels at L4-L5 and S1. With the appropriate levels confirmed was able to make small incisions over the appropriate pedicle sites bilaterally. Utilizing the computer navigation device I was able to establish bony landmarks at the right iliac crest for a bony reference point for the navigation device. I was able to establish a Jamshidi needle over the lateral aspect of the pedicle and advanced the trocar into the pedicle being careful not to breech superiorly inferiorly medially or laterally using computer navigation device. Position was confirmed regularly with AP and lateral images on C-arm and with the computer navigation device at the appropriate levels bilaterally. I was able to establish the trocar into the pedicle appropriately into the posterior aspect of the vertebral body bilaterally at the appropriate levels at L4-L5 and S1. This was done at each of the pedicle positions and each of the vertebrae. At the superior vertebrae I was able to take approximately 25 mL of bone aspiration for use later in the case to supplement the allograft and autograft bone. I was able place the guidewire into the trocar and into the vertebral body appropriately under C-arm guidance. Dissection was taken down over the wire to the appropriate starting position for the screw placed. The appropriate length screw was chosen, threaded over the guidewire and screwed appropriately into the pedicle and vertebral body under C-arm guidance in excellent alignment and position with good bony purchase. This is done at each of the screw sites at the appropriate levels at L4-L5 and S1. With the screws intact I extended the incision to connect the screw hole sites on the most symptomatic side on the left. I dissected down to establish access over the pars and lamina to the base of the spinous process. I was able to expose the facet joint. The capsule the facet was taken down and showed some facet arthrosis at the joint. I was able to use a combination of curettes and Kerrison rongeurs and a high-speed drill to take down the facet joint and do a facetectomy. I was able get excellent foraminal decompression and central decompression with undermining across midline to perform a laminectomy centrally and contralaterally. As able get good central decompression. The ligamentum flavum was taken down to further decompress centrally and at bilateral neural foramen. I was able to expose the disc space and visualize the traversing nerve root. Note was made of a massive disc herniation at left paracentral area particularly at L4 5 causing severe distortion and tension at the traversing nerve root and the dura. and disc herniation that was abutting the traversing nerve root at the level causing further compression of the nerve root. At L5-S1 there is evidence of recurrence of the herniation and significant scar tissue formation causing significant compression at the traversing nerve root. I started at L4 5 and in similar fashion worked at L5-S1 as well. I was able to establish a annulotomy at the appropriate level protecting soft tissue and neural structures. Note was made of some disc desiccation at the disc. I performed a complete discectomy with accommodation of curettes and rasps and scrapers. There is significant discectomy performed with extruded disc at L4 5 in particular and at L5 S1 as well. I was able get good endplate preparation at the disc space. I sized for the appropriate size interbody spacer protecting the soft tissue and neural structures. The wound was copiously irrigated and suctioned dry. There is no evidence of any dural tear or leak. I was able to pack the disc space with local autogenous bone graft as well as a small amount of bone graft which was also placed into the interbody cage itself. Protecting the soft tissue structures and neural structures I was able place the interbody cage in good alignment and good position with good fit and fill at the interbody space. Position was confirmed with C-arm guidance. Good hemostasis maintained. There is no evidence of any dural tear or leak. The wound was irrigated and suctioned dry. With the hardware intact, intraoperative C-arm imaging was again taken which showed good alignment and position of the hardware at the appropriate levels at L4-L5 and S1. We were then able to measure, contour and place the rods and appropriate hardware bilaterally. I was able to place capcrews, tighten them down, and torque them with the torque screwdriver appropriately. With this intact I was able to place the local autogenous bone graft with additional bone graft enhancer as necessary into the posterior lateral gutters over the decorticated transverse processes and facet joints on the contralateral side. The remainder of the bone graft was placed over the facet joint on the contralateral side on the right after taking down the facet joint capsule. With the bone graft intact, a stable construct, and good decompression at the appropriate levels, we were able to proceed with closure. Good hemostasis was maintained. There is no evidence of dural tear or leak. The fascia was closed for a watertight closure. he subcuticular tissue was closed with absorbable suture. The wound was cleaned and dried and dressed with the appropriate dressing. The drapes were broken down. The patient was gently rolled back onto their hospital bed being careful to maintain their cervical spine and good neutral alignment and position. They were woken up by anesthesia, extubated, and brought to the recovery room in good stable condition. The patient will be admitted to the hospital for appropriate postoperative care, medical management and monitoring. We will continue to follow them closely about the postoperative course.
--- NOTE | 2022-08-03 16:10 | FL ---
Fluoroscopy HISTORY: Spinal fusion 19 seconds fluoroscopy time supplied to the referring clinician. 5 intraoperative C-arm images docum ent the procedure. See dictated report from orthopedic surgery.
[2022-08-03] MEDS: HYDROmorphone 0.5 MG/0.5 ML SYRINGE IVP PRN ×4 (16:21→20:19)
[2022-08-03 16:47] LABS: Glucose,Whole Blood 127 mg/dL (70-110)
[2022-08-03] MEDS ORDERED: diphenhydrAMINE 50 MG/ML 1 ML VIAL IVP ONE (17:16)
[2022-08-03] MEDS: Insulin Aspart (For Pump) 100 UNIT/ML VIAL SQ-PUMP SCH (18:02)
[2022-08-03] MEDS: SODIUM CHLORIDE 0.9% 1,000 ML IV SCH (18:05)
[2022-08-03 19:56] LABS: Glucose,Whole Blood 82 mg/dL (70-110)
[2022-08-03] MEDS: HYDROcodone/APAP 7.5-325MG 1 EACH TAB PO PRN (19:56)
[2022-08-03] MEDS: MELATONIN 5 MG TABLET PO SCH (20:14)
[2022-08-03] MEDS: traZODone HCL 100 MG TAB PO SCH (20:14)
[2022-08-03] MEDS: NITROFURANTOIN MONOHYD/M-CRYST 100 MG CAP PO SCH (20:14)
[2022-08-03] MEDS: ETHINYL ESTRADIOL PO SCH (22:24)
[2022-08-03] MEDS: LEVOMEFOLATE PO SCH (22:24)
[2022-08-03] MEDS: DROSPIRENONE PO SCH (22:24)
[2022-08-03] MEDS: HYDROmorphone 1 MG/ML 1 ML SYRINGE IVP PRN (22:45)
[2022-08-04] MEDS: HYDROmorphone 1 MG/ML 1 ML SYRINGE IVP PRN ×5 (04:25→21:22)
[2022-08-04] MEDS: SODIUM CHLORIDE 0.9% 1,000 ML IV SCH ×2 (05:45→08:19)
[2022-08-04 07:09] LABS: Glucose,Whole Blood 219 mg/dL (70-110)
[2022-08-04] MEDS: LACTATED RINGERS 1,000 ML IV SCH (08:17)
[2022-08-04] MEDS: lamoTRIgine 100 MG TAB PO SCH (08:18)
[2022-08-04] MEDS: CITALOPRAM HYDROBROMIDE 20 MG TAB PO SCH (08:18)
[2022-08-04] MEDS: DIPHENOX-ATROP 2.5-0.025 MG 1 EACH TAB PO SCH (08:18)
[2022-08-04] MEDS: SENNOSIDES-DOCUSATE SODIUM 1 EACH TAB PO SCH (08:18)
[2022-08-04] MEDS: NITROFURANTOIN MONOHYD/M-CRYST 100 MG CAP PO SCH ×2 (08:18→21:22)
[2022-08-04] MEDS: CYCLOBENZAPRINE 10 MG TAB PO PRN ×2 (08:43→19:51)
[2022-08-04 10:07] LABS: African American GFR (CKD) 94.2 (60.0-200.0); Anion Gap 10.8 mmol/L (10.00-18.00); BUN/Creat Ratio 8.85 Ratio (12.00-20.00); Blood Urea Nitrogen 7.7 mg/dL (9.0-27.0); Carbon Dioxide 22.3 mmol/L (20.0-27.5); Non-African American GFR(CKD) 81.3 (60.0-200.0); Potassium 4.2 mmol/L (3.5-5.5)
[2022-08-04 10:15] LABS: Basophils # (A) 0.03 X 10*3/uL (0.00-0.10); Basophils % (A) 0.2 %; Eosinophils # (A) 0 X 10*3/uL (0.04-0.35); Eosinophils % (A) 0 %; HCT 35.7 % (37.2-46.3); HGB 11.5 g/dL (12.0-15.0); Immature Grans, Automated 0.5 %; Lymphocytes # (A) 0.85 X 10*3/uL (0.90-5.00); Lymphocytes % (A) 5.7 %; MCH 30.8 pg (27.0-32.0); MCHC 32.2 g/dL (32.0-37.0); MCV 95.7 fL (80.0-97.0); Mean Platelet Volume 13.7 fL (9.5-12.2); Monocytes # (A) 1.08 X 10*3/uL (0.20-1.00); Monocytes % (A) 7.2 %; NRBC Per 100 WBC 0 /100 WBCS (0.0-0.0); Neutrophils # (A) 12.87 X 10*3/uL (1.80-7.70); Neutrophils % (A) 86.4 %; Platelet Count 150 X 10*3/uL (140-440); RBC 3.73 X 10*6/uL (4.10-5.20)
[2022-08-04 11:13] LABS: Glucose,Whole Blood 377 mg/dL (70-110)
--- NOTE | 2022-08-04 11:34 | P.PN ---
Progress Note - Text Progress Note Date: 08/04/22 Postoperative day #1 Patient is seen and examined today at bedside. The patient has some pain around the surgical site as expected. Pain is being controlled with medication. She is having significant pain in her back and is unsure how her legs are doing thus far. She does not feel new weakness in her lower extremities. She has been able to eat and she has not had any nausea or vomiting Physical Exam Afebrile with stable vital signs Abdomen is soft nontender. Chest has good excursion deep and space expiration The incision site is clean dry and intact. No erythema there is no purulence. Extremities have not had neurologic change from prior to surgery. She has sustained dorsal flexion plantarflexion and EHL intact Calves and thighs were soft nontender without evidence of DVT. Assessment/Plan Postoperative day #1 status post minimally invasive decompression fusion L4 5 L5-S1 for her recurrent disc herniation with large disc herniation L4 5 and recurrent herniation L5-S1 lower extremity weakness Patient is progressing as expected from the surgery. Her back is significantly painful but she has been able to get up. Her neurologic function seems to be improving in her lower extremities and I think she will continue to make progress as her surgical pain diminishes. We will continue to increase the patient's mobilization with therapy. We will continue pain control with oral or IV medications. We'll continue to follow patient closely.
[2022-08-04] MEDS: HYDROcodone/APAP 7.5-325MG 1 EACH TAB PO PRN (12:52)
--- NOTE | 2022-08-04 14:25 | P.CONS ---
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 Patient is status post L5-S1 revision laminectomy and decompression with discectomy performed on 06/09 2021. She continued to have pain in her low back and down into her left lower extremity relating to the top of her left foot. She has undergone steroid injections but continued to have significant pain. She has been brought into [facility] by Dr. Mejia yesterday and underwent revision laminectomy with decompression L5-S1, laminectomy and decompression L4-5, minimally invasive posterior lateral decompression and fusion of L4-5 and L5-S1, minimally invasive transforaminal lumbar interbody fusion L4-5, L5-S1. Patient is seen today on the [facility] floor, she has not had any postop complications. Patient has been hemodynamically stable. Currently she is afebrile, blood pressure 101/66, heart rate 82, pulse ox 95% on room air. Capillary blood glucose running between 82 and 219. Patient is resting in bed appears to be somewhat uncomfortable. She does have pain in the lumbar area down into the thighs to the knees. She denies numbness or tingling. Hicks cat heter was removed stable to void on her own. No bowel movement yet. She denies having any chest pain or shortness of breath. She has consumed some of her meals today and feels that she is drinking adequately. IV fluids will be discontinued. Patient denies need for nicotine patch REVIEW OF SYSTEMS Constitutional: No fever, no chills, no night sweats. No weight change. No weakness, fatigue or lethargy. No daytime sleepiness. EENT: No headache. No blurred vision or double vision, no loss of vision. No loss of Hearing, no ringing in the ears, no dizziness. No nasal drainage or congestion. No epistaxis. No sore throat. Lungs: No shortness of breath, cough, no sputum production. No wheezing. Cardiovascular: No chest pain, no lower extremity edema. No palpitations. No paroxysmal nocturnal dyspnea. No orthopnea. No lightheadedness or dizziness. No syncopal episodes. Abdominal: No abdominal pain. No nausea, vomiting. No diarrhea. No constipation. No bloody or tarry stools. No loss of appetite. Genitourinary: No dysuria, increased frequency, urgency. No urinary retention. Musculoskeletal: No myalgias. No muscle weakness, no gait dysfunction, no frequent falls. Reports lumbar back pain. No neck pain. Integumentary: No wounds, no lesions. No rash or pruritus. No unusual bruising. No change in hair or nails. Neurologic: No aphasia. No facial droop. No change in mentation. No head injury. No headache. No paralysis. No paresthesia. Psychiatric: No depression. No anxiety. No mood swings. Endocrine: Noted abnormal blood sugars. No weight change. No excessive sweating or thirst. No cold intolerance. 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 SOCIAL HISTORY Patient smokes half a pack of cigarettes per day since the age of 16. No alcohol use, no illicit drug use, no marijuana use. FAMILY HISTORY Father at age 56 from myocardial infarction. Mother is alive at age 65 with history of thyroid disease. Patient has one sister alive and healthy. Patients 1 son that is alive and healthy. PHYSICAL EXAMINATION Gen: This is this is a 41-year-old female. She is resting in bed appears comfortable and in no acute distress. HEENT: Head is atraumatic, normocephalic. Pupils equal, round. Sclerae is anicteric. NECK: Supple. No JVD. No lymphadenopathy. No thyromegaly. LUNGS: Clear to auscultation. No wheezes or rhonchi. No intercostal retractions. HEART: First heart sound is depressed, second heart sound is normal, there is no S3 or S4. ABDOMEN: Soft. Bowel sounds are present. No masses. No tenderness. EXTREMITIES: No pedal edema. No calf tenderness. NEUROLOGICAL: Patient is awake, alert and oriented x3. Cranial nerves 2 through 12 are grossly intact. ASSESSMENT AND PLAN 1. Disc herniation L4-5, recurrent disc herniation L5-S1 status post laminectomy and decompression 08/03. Continue current management per ortho pedics spine team. Continue [place] and/or Dilaudid as needed for pain, continue Lamictal 100 mg daily. Continue incentive spirometry to reduce incidence of atelectasis and hospital-acquired pneumonia. Discontinue IV fluids. 2. Diabetes mellitus type 2. Continue insulin pump. 3. Generalized anxiety disorder. Continue Xanax 0.25 mg daily as needed, Celexa 40 mg daily, melatonin 10 mg at bedtime, trazodone 100 mg at bedtime. 4. IBS, stable. 5. Gastroesophageal reflux disease and GI prophylaxis. Patient will be started on Protonix daily. 6. Tobacco use and dependence. Patient denies need for nicotine patch. 7. DVT prophylaxis. Early ambulation. DISCHARGE PLAN Most likely return home. Impression and plan of care have been directed as dictated by the signing physician. Nilam Villagran nurse practitioner acting as scribe for signing physician. Past Medical History Past Medical History: Diabetes Mellitus Additional Past Medical History / Comment(s): Current UTI, on Macrobid Bid per Dr Mejia. IBS. Back pain, herniated disc. History of Any Multi-Drug Resistant Organisms: None Reported Past Surgical History: Back Surgery, Breast Surgery, Cholecystectomy Additional Past Surgical History / Comment(s): Breast augmentation, pain procedure, disectomy, laminectomy and revision. Past Anesthesia/Blood Transfusion Reactions: No Reported Reaction Past Psychological History: Anxiety, Depression Smoking Status: Former smoker Past Alcohol Use History: Occasional Additional Past Alcohol Use History / Comment(s): Quit smoking Oct 2020, smoked for 20 yrs, 1 PPD. Past Drug Use History: None Reported - Past Family History Mother Family Medical History: Deep Vein Thrombosis (DVT), Pulmonary Embolus Medications and Allergies Home Medications Medication Instructions Recorded Confirmed Type Diphenoxylate HCl/Atropine 2 tab PO QAM 03/10/21 08/03/22 History [Lomotil 2.5-0.025 mg Tablet] Melatonin [Melatonin ER] 10 mg PO HS 03/10/21 08/03/22 History lamoTRIgine [LaMICtal] 100 mg PO QAM 03/10/21 08/03/22 History traZODone HCL 100 mg PO HS 03/10/21 08/03/22 History HYDROcodone/APAP 7.5-325MG [[place] 1 tab PO Q4H PRN #42 tab 04/21/21 08/03/22 Rx 7.5-325] ALPRAZolam [Xanax] 0.25 mg PO DAILY PRN 01/20/22 08/03/22 History Citalopram Hydrobromide [CeleXA] 40 mg PO QAM 08/02/22 08/03/22 History Drospir/Eth Estra/Levomefol Ca 1 each PO HS 08/02/22 08/03/22 History [Tydemy 3-0.03-0.451 mg Tablet] Insulin Aspart (For Pump) [NovoLOG 0.01 unit SQ-PUMP CONTINUOUS 08/02/22 08/03/22 History (For Pump)] Nitrofurantoin Monohyd/M-Cryst 100 mg PO BID 08/02/22 08/03/22 History [Macrobid] Allergies Allergy/AdvReac Type Severity Reaction Status Date / Time No Known Allergies Allergy Verified 08/03/22 10:13 Physical Exam Vitals: Vital Signs Temp Pulse Pulse Resp BP BP Pulse Ox 08/04/22 05:29 99.0 F 82 16 101/66 95 08/03/22 20:00 98.3 F 88 16 117/70 93 L 08/03/22 17:43 98.7 F 87 16 107/71 94 L 08/03/22 17:15 90 16 123/62 92 L 08/03/22 17:00 82 16 105/53 96 08/03/22 16:47 79 16 103/55 99 08/03/22 16:36 92 16 104/51 99 08/03/22 16:21 92 16 133/58 100 08/03/22 16:06 97.2. F 81 16 157/61 100 08/03/22 10:12 96.9 F L 83 18 116/58 96 Intake and Output 08/03/22 08/04/22 08/04/22 22:59 06:59 14:59 Intake Total 110 590 Output Total 315 Balance -205 590 Intake: IV 100 Intake, IV Titration 10 Amount Sodium Chloride 0.9% 1, 10 000 ml @ 75 mls/hr IV . [id number] [facility] Rx#:[id number] Oral 590 Output: Urine 65 Estimated Blood Loss 250 Other: Voiding Method Indwelling Catheter Results CBC & Chem 7: 08/04/22 06:02 08/04/22 06:02 Labs: Abnormal Lab Results - Last 24 Hours (Table) 08/03/22 08/03/22 08/04/22 Range/Units 10:32 16:46 07:08 POC Glucose (mg/dL) 168 H 127 H 219 H (70-110) mg/dL
[2022-08-04 17:09] LABS: Glucose,Whole Blood 176 mg/dL (70-110)
[2022-08-04] MEDS ORDERED: INSULIN ASPART (NovoLOG) 100 UNIT/ML VIAL SQ PRN (17:09)
[2022-08-04] MEDS ORDERED: INSULIN PUMP BASAL RATES 1 EACH MISC MISCELLANE PRN (17:09)
[2022-08-04] MEDS: Insulin Aspart (For Pump) 100 UNIT/ML VIAL SQ-PUMP SCH (18:11)
[2022-08-04] MEDS: HYDROmorphone 0.5 MG/0.5 ML SYRINGE IVP PRN (19:51)
[2022-08-04] MEDS: traZODone HCL 100 MG TAB PO SCH (21:22)
[2022-08-04] MEDS: MELATONIN 5 MG TABLET PO SCH (21:22)
[2022-08-04] MEDS: DROSPIRENONE PO SCH (21:28)
[2022-08-04] MEDS: ETHINYL ESTRADIOL PO SCH (21:28)
[2022-08-04] MEDS: LEVOMEFOLATE PO SCH (21:28)
[2022-08-05 07:16] LABS: Glucose,Whole Blood 132 mg/dL (70-110)
[2022-08-05] MEDS: LACTATED RINGERS 1,000 ML IV SCH (07:28)
[2022-08-05] MEDS: CYCLOBENZAPRINE 10 MG TAB PO PRN ×2 (07:57→20:36)
[2022-08-05] MEDS: HYDROcodone/APAP 7.5-325MG 1 EACH TAB PO PRN (07:57)
--- NOTE | 2022-08-05 08:49 | P.PN ---
Progress Note - Text Progress Note Date: 08/05/22 Orthopedic Spine History of present illness: Patient is a pleasant 41-year-old female who is seen and examined at the bedside following posterior lateral decompression and fusion performed Monday. She continues to have significant pain postoperatively at her lumbar spine. Her pain is exacerbated with any active range of motion of her spine. She has been able to mobilize multiple times to the restroom. She is voiding without difficulty and does have increased pain while trying to mobilize to the bathroom. She does continue have some lower extremity radiculopathy bilaterally but states her left lower extremity pain is improved postoperatively. She does have some abdominal discomfort but has not had any bloating or distention. Her abdomen is soft. Currently does not complain of nausea, vomiting, fever, or chills. Physical Exam Lumbar Fusion: Status post surgical day number 2 Patient is awake, alert, and oriented 3 Vital signs stable Good chest excursion with deep inspiration and expiration Abdomen soft nontender Dorsiflexion, plantarflexion, and extensor hallucis longus positive sustained bilaterally No signs or symptoms of DVT; no calf pain; pneumatic cuffs not currently intact bilateral lower extremities Optifoam dressings are clean, dry, and intact over the lumbar spine and right iliac crest; no erythema, purulence, or signs of infection Neurovascularly intact bilaterally lower extremities Patient does have significant pain at her lumbar spine with trying to mobilize in bed Assessment: Status post L4-5 and L5-S1 minimally invasive posterior lateral decompression and fusion with transforaminal lumbar interbody fusion L5-S1 recurrent disc herniation L4-5 massive disc herniation Lower extremity radiculopathy Lumbar degenerative disc disease Facet arthrosis Lower extremity weakness Low back pain History of L5-S1 laminectomy and decompression with discectomy Diabetes mellitus Irritable bowel syndrome with diarrhea Generalized anxiety disorder Plan: 1. Ambulate as tolerated; work with Physical Therapy to increase mobilization 2. Continue pain control with IV and oral medications; she is continuing to have significant difficulty with pain control. We'll plan to increase her oral narcotics to hydrocodone 10 mg/325 mg 1-2 tabs every 4 hours as needed for pain. She may continue with IV Dilaudid as prescribed as needed for pain control. She will continue with cyclobenzaprine has prescribed as needed for muscle spasms. 3. Dressings to remain intact with Optifoam; patient may shower with dressings intact 4. Medical management can continue to manage patient for patient's other medical diagnoses including diabetes mellitus and irritable bowel syndrome 5. We will continue to follow the patient closely; patient is progressing significantly slowly postoperatively. She continued to have significant difficulty with any sort of mobilization. She is still requiring IV pain medication. Will currently planned to increase her pain medication to see if we need better pain control. She has been working with physical therapy to try to increase her mobility and ambulation. I do not feel the patient is ready for discharge home. Patient will continue to remain in the hospital until her symptoms improve and her pain is better controlled. We will plan to have the patient be admitted to in patient status during her admission. Depending on her progress we patient may plan to be discharged home over the next 1-2 days. 6. Patient can follow-up with David Hernandez PA-C or Dr. Rajan Mejia at [facility] in 2-3 weeks following discharge
[2022-08-05] MEDS: CITALOPRAM HYDROBROMIDE 20 MG TAB PO SCH (09:09)
[2022-08-05] MEDS: DIPHENOX-ATROP 2.5-0.025 MG 1 EACH TAB PO SCH (09:09)
[2022-08-05] MEDS: NITROFURANTOIN MONOHYD/M-CRYST 100 MG CAP PO SCH ×2 (09:09→20:28)
[2022-08-05] MEDS ORDERED: MAGNESIUM HYDROXIDE 2,400 MG/10 ML CUP PO PRN (09:09)
[2022-08-05] MEDS: lamoTRIgine 100 MG TAB PO SCH (09:09)
[2022-08-05] MEDS: SENNOSIDES-DOCUSATE SODIUM 1 EACH TAB PO SCH ×2 (09:12→09:19)
--- NOTE | 2022-08-05 09:15 | P.PN ---
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 Patient is status post L5-S1 revision laminectomy and decompression with discectomy performed on 06/09 2021. She continued to have pain in her low back and down into her left lower extremity relating to the top of her left foot. She has undergone steroid injections but continued to have significant pain. She has been brought into [facility] by Dr. Mejia yesterday and underwent revision laminectomy with decompression L5-S1, laminectomy and decompression L4-5, minimally invasive posterior lateral decompression and fusion of L4-5 and L5-S1, minimally invasive transforaminal lumbar interbody fusion L4-5, L5-S1. Patient is seen today on the [facility] floor, she has not had any postop complications. Patient has been hemodynamically stable. Currently she is afebrile, blood pressure 101/66, heart rate 82, pulse ox 95% on room air. Capillary blood glucose running between 82 and 219. Patient is resting in bed appears to be somewhat uncomfortable. She does have pain in the lumbar area down into the thighs to the knees. She denies numbness or tingling. Hicks catheter was removed stable to void on her own. No bowel movement yet. She denies having any chest pain or shortness of breath. She has consumed some of her meals today and feels that she is drinking adequately. IV fluids will be discontinued. Patient denies need for nicotine patch 08/05: Patient remains afebrile, heart rate in the 80s, blood pressure 101/60, pulse ox 95% on room air. Capillary blood glucose running between 132 and 377. Patient is maintained on her insulin pump. Patient is reaching 1500 MLS on incentive spirometry. She was seen yesterday by physical therapy with recommendations for home with home care. Patient has been up to the bathroom several times but is unable to tolerate sitting in a chair. Orthopedic spine is increasing her pain medications. We will increase her Senokot to 2 scheduled daily and add in MiraLAX scheduled daily and milk of magnesia as needed. Patien t complains of some vague abdominal discomfort and decreased appetite. She states mostly at the food does not look appetizing and does not taste good here. Family is bringing in her food today. She did eat half of her dinner last night. REVIEW OF SYSTEMS Constitutional: No fever, no chills, no night sweats. No weight change. No weakness, fatigue or lethargy. No daytime sleepiness. EENT: No headache. No blurred vision or double vision, no loss of vision. No loss of Hearing, no ringing in the ears, no dizziness. No nasal drainage or congestion. No epistaxis. No sore throat. Lungs: No shortness of breath, cough, no sputum production. No wheezing. Cardiovascular: No chest pain, no lower extremity edema. No palpitations. No paroxysmal nocturnal dyspnea. No orthopnea. No lightheadedness or dizziness. No syncopal episodes. Abdominal: Reports vague abdominal discomfort. No nausea, vomiting. No diarrhea. No constipation. No bloody or tarry stools. No loss of appetite. Genitourinary: No dysuria, increased frequency, urgency. No urinary retention. Musculoskeletal: No myalgias. No muscle weakness, no gait dysfunction, no frequent falls. Reports lumbar back pain. No neck pain. Integumentary: No wounds, no lesions. No rash or pruritus. No unusual bruising. No change in hair or nails. Neurologic: No aphasia. No facial droop. No change in mentation. No head injury. No headache. No paralysis. No paresthesia. Psychiatric: No depression. No anxiety. No mood swings. Endocrine: Noted abnormal blood sugars. No weight change. No excessive swe ating or thirst. No cold intolerance. PHYSICAL EXAMINATION Gen: This is this is a 41-year-old female. She is resting in bed appears comfortable and in no acute distress. HEENT: Head is atraumatic, normocephalic. Pupils equal, round. Sclerae is anicteric. NECK: Supple. No JVD. No lymphadenopathy. No thyromegaly. LUNGS: Clear to auscultation. No wheezes or rhonchi. No intercostal retractions. HEART: First heart sound is depressed, second heart sound is normal, there is no S3 or S4. ABDOMEN: Soft. Bowel sounds are present. No masses. No abdominal tenderness. Lumbar wound has dressing in place, no breakthrough bleeding or drainage. EXTREMITIES: No pedal edema. No calf tenderness. NEUROLOGICAL: Patient is awake, alert and oriented x3. Cranial nerves 2 through 12 are grossly intact. ASSESSMENT AND PLAN 1. Disc herniation L4-5, recurrent disc herniation L5-S1 status post laminectomy and decompression 08/03. Continue current management per orthopedics spine team. Continue [place] and/or Dilaudid as needed for pain, continue Lamictal 100 mg daily. Continue incentive spirometry to reduce incidence of atelectasis and hospital-acquired pneumonia. Discontinue IV fluids. 2. Diabetes mellitus type 2. Continue insulin pump. 3. Vague abdominal discomfort with decreased appetite. Bowel regime increased to Senokot 2 scheduled daily, MiraLAX 17 g scheduled daily and milk of magnesia as needed. Family will bring in food from home. 4. Generalized anxiety disorder. Continue Xanax 0.25 mg daily as needed, Celexa 40 mg daily, melatonin 10 mg at bedtime, trazodone 100 mg at bedtime. 5. IBS, stable. Patient has Lomotil available if needed. 6. Gastroesophageal reflux disease and GI prophylaxis. Patient will be started on Protonix daily. 7. Tobacco use and dependence. Patient denies need for nicotine patch. 8. DVT prophylaxis. Early ambulation. DISCHARGE PLAN Most likely return home over the weekend. Impression and plan of care have been directed as dictated by the signing devin loomis. Nilam Villagran nurse practitioner acting as scribe for signing physician. Objective - Vital Signs Vital signs: Vital Signs Temp 98.7 F 08/05/22 05:00 Pulse 86 08/05/22 05:00 Resp 16 08/05/22 05:00 BP 101/60 08/05/22 05:00 Pulse Ox 95 08/05/22 05:00 FiO2 Intake & Output 08/04/22 08/05/22 08/05/22 18:59 06:59 18:59 Intake Total 590 Output Total 3 1 Balance -3 590 -1 Intake: Oral 590 Output: Urine 3 1 Other: Voiding Method Toilet # Voids 3 - Labs CBC & Chem 7: 08/04/22 06:02 08/04/22 06:02 Labs: Abnormal Lab Results - Last 24 Hours (Table) 08/04/22 08/04/22 08/04/22 Range/Units 06:02 06:02 11:11 WBC 14.90 H (4.50-10.00) X 10*3/uL RBC 3.73 L (4.10-5.20) X 10*6/uL Hgb 11.5 L (12.0-15.0) g/dL Hct 35.7 L (37.2-46.3) % MPV 13.7 H (9.5-12.2) fL Immature Gran # 0.07 H (0.00-0.04) X 10*3/uL Neutrophils # 12.87 H (1.80-7.70) X 10*3/uL Lymphocytes # 0.85 L (0.90-5.00) X 10*3/uL Monocytes # 1.08 H (0.20-1.00) X 10*3/uL Eosinophils # 0 L (0.04-0.35) X 10*3/uL BUN 7.7 L (9.0-27.0) mg/dL BUN/Creatinine Ratio 8.85 L (12.00-20.00) Ratio Glucose 129 H (70-110) mg/dL POC Glucose (mg/dL) 377 H (70-110) mg/dL Calcium 8.0 L (8.7-10.3) mg/dL 08/04/22 08/05/22 Range/Units 17:07 07:14 WBC (4.50-10.00) X 10*3/uL RBC (4.10-5.20) X 10*6/uL Hgb (12.0-15.0) g/dL Hct (37.2-46.3) % MPV (9.5-12.2) fL Immature Gran # (0.00-0.04) X 10*3/uL Neutrophils # (1.80-7.70) X 10*3/uL Lymphocytes # (0.90-5.00) X 10*3/uL Monocytes # (0.20-1.00) X 10*3/uL Eosinophils # (0.04-0.35) X 10*3/uL BUN (9.0-27.0) mg/dL BUN/Creatinine Ratio (12.00-20.00) Ratio Glucose (70-110) mg/dL POC Glucose (mg/dL) 176 H 132 H (70-110) mg/dL Calcium (8.7-10.3) mg/dL
[2022-08-05] MEDS: polyethylene glycoL 3350 17 GM POWD.PACK PO SCH (09:19)
[2022-08-05 11:16] LABS: Glucose,Whole Blood 170 mg/dL (70-110)
[2022-08-05] MEDS: INSPUCOR MISCELLANE PRN ×2 (12:30→17:37)
[2022-08-05] MEDS: HYDROcodone/APAP 10-325MG 1 EACH TAB PO PRN ×2 (15:45→19:26)
[2022-08-05] MEDS: Insulin Aspart (For Pump) 100 UNIT/ML VIAL SQ-PUMP SCH (16:42)
[2022-08-05 17:29] LABS: Glucose,Whole Blood 194 mg/dL (70-110)
[2022-08-05 18:07] VITALS: RESP 18
[2022-08-05] MEDS: LEVOMEFOLATE PO SCH (20:05)
[2022-08-05] MEDS: ETHINYL ESTRADIOL PO SCH (20:05)
[2022-08-05] MEDS: DROSPIRENONE PO SCH (20:05)
[2022-08-05] MEDS: MELATONIN 5 MG TABLET PO SCH (20:28)
[2022-08-05] MEDS: traZODone HCL 100 MG TAB PO SCH (20:28)
[2022-08-06] MEDS: LACTATED RINGERS 1,000 ML IV SCH (05:35)
[2022-08-06 05:36] VITALS: TEMP 98.3
[2022-08-06 06:59] LABS: Glucose,Whole Blood 65 mg/dL (70-110)
[2022-08-06 07:35] LABS: Glucose,Whole Blood 180 mg/dL (70-110)
[2022-08-06] MEDS: DIPHENOX-ATROP 2.5-0.025 MG 1 EACH TAB PO SCH ×2 (08:11→08:55)
[2022-08-06] MEDS ORDERED: oxyCODONE-APAP 5-325MG 1 EACH TAB PO PRN (08:53)
[2022-08-06] MEDS: polyethylene glycoL 3350 17 GM POWD.PACK PO SCH (08:56)
[2022-08-06] MEDS: SENNOSIDES-DOCUSATE SODIUM 1 EACH TAB PO SCH (08:56)
[2022-08-06] MEDS: CITALOPRAM HYDROBROMIDE 20 MG TAB PO SCH (08:56)
[2022-08-06] MEDS: HYDROcodone/APAP 10-325MG 1 EACH TAB PO PRN (08:56)
[2022-08-06] MEDS: NITROFURANTOIN MONOHYD/M-CRYST 100 MG CAP PO SCH (08:57)
[2022-08-06] MEDS: lamoTRIgine 100 MG TAB PO SCH (08:57)
--- NOTE | 2022-08-06 09:02 | P.DS ---
Providers Date of admission: 08/05/22 11:27 Attending physician: Elroy Mejia Consults: 08/03/22 15:53 Consult Physician Routine Consulting Provider: Ynes Polanco Consult Reason/Comments: Medical management Do you want consulting provider notified?: Yes Primary care physician: Ynes Polanco Hospital Course: Postoperative day #3 Patient is seen and examined today at bedside. She was initially admitted in regards to her large disc herniation at L4 5 and stenosis L5-S1 with severe low back pain and lower extremity radiculopathy and weakness. The patient underwent minimally invasive decompression and fusion L4 5 L5-S1 as per her operative note. The patient has some pain around the surgical site as expected. Pain is being controlled somewhat with medication, but she feels we may have some better luck with an alternate medication. She is voiding freely and tolerating her diet though she is passing limited gas and has not yet had a bowel movement Physical Exam Afebrile with stable vital signs Abdomen is soft nontender. Chest has good excursion deep and space expiration The incision site is clean dry and intact. No erythema there is no purulence. Extremities have not had neurologic change from prior to surgery. She has sustained dorsal flexion plantarflexion and EHL Calves and thighs were soft nontender without evidence of DVT. Assessment/Plan Postoperative day #3 status post minimally invasive decompression fusion L4 5 L5-S1 for large disc herniation with revision laminectomy decompression and fusion L4 5 L5-S1 Patient is progressing a little bit slowly from the surgery. She has been able to mobilize better and she is tolerating her diet. She feels like she is making progress each day. We would like to try a different medication with Percocet to see if that does a better job for her oral medication. If it is doing better gently consider home with Percocet otherwise she should continue with her Mystic for discharge. She feels that she may be able to be discharged home today if she make some progress to the morning and I think it would be appropriate as her wound site is clear and her neurologic status is intact. I would like to see that she take some improvement with her bowels starting to move before discharge as well. If she is doing this than I think it is okay for discharge home today. We will continue to increase the patient's mobilization with therapy. We will continue pain control with oral medications. If she is making some progress to the morning I think she'll be okay for discharge home today. I discussed this with her, answered her questions best my ability and she is agreeable. We'll plan to see her back in approximately 2 weeks or sooner if she is having problems. She'll be given appropriate discharge instructions and medications. Patient Condition at Discharge: Good Plan - Discharge Summary Discharge Rx Participant: No New Discharge Prescriptions: New HYDROcodone/APAP 10-325MG [Mystic 10] 1 - 2 each PO Q6H PRN #56 tab PRN Reason: Pain oxyCODONE HCL/ACETAMINOPHEN [Percocet 5-325 mg] 1 tab PO Q4HR PRN #42 tab PRN Reason: Pain Cyclobenzaprine [Flexeril] 10 mg PO TID PRN #60 tab PRN Reason: Muscle Spasm No Action traZODone HCL 100 mg PO HS ALPRAZolam [Xanax] 0.25 mg PO DAILY PRN PRN Reason: Agitation Or Acute Anxiety Insulin Aspart (For Pump) [NovoLOG (For Pump)] 0.01 unit SQ-PUMP CONTINUOUS Drospir/Eth Estra/Levomefol Ca [Tydemy 3-0.03-0.451 mg Tablet] 1 each PO HS lamoTRIgine [LaMICtal] 100 mg PO QAM Diphenoxylate HCl/Atropine [Lomotil 2.5-0.025 mg Tablet] 2 tab PO QAM Melatonin [Melatonin ER] 10 mg PO HS HYDROcodone/APAP 7.5-325MG [Mystic 7.5-325] 1 tab PO Q4H PRN #42 tab PRN Reason: Pain Nitrofurantoin Monohyd/M-Cryst [Macrobid] 100 mg PO BID Citalopram Hydrobromide [CeleXA] 40 mg PO QAM Discharge Medication List Diphenoxylate HCl/Atropine [Lomotil 2.5-0.025 mg Tablet] 2 tab PO QAM 03/10/21 [History] Melatonin [Melatonin ER] 10 mg PO HS 03/10/21 [History] lamoTRIgine [LaMICtal] 100 mg PO QAM 03/10/21 [History] traZODone HCL 100 mg PO HS 03/10/21 [History] HYDROcodone/APAP 7.5-325MG [Mystic 7.5-325] 1 tab PO Q4H PRN #42 tab 04/21/21 [Rx] ALPRAZolam [Xanax] 0.25 mg PO DAILY PRN 01/20/22 [History] Citalopram Hydrobromide [CeleXA] 40 mg PO QAM 08/02/22 [History] Drospir/Eth Estra/Levomefol Ca [Tydemy 3-0.03-0.451 mg Tablet] 1 each PO HS 08/02/22 [History] Insulin Aspart (For Pump) [NovoLOG (For Pump)] 0.01 unit SQ-PUMP CONTINUOUS 08/02/22 [History] Nitrofurantoin Monohyd/M-Cryst [Macrobid] 100 mg PO BID 08/02/22 [History] Cyclobenzaprine [Flexeril] 10 mg PO TID PRN #60 tab 08/05/22 [Rx] HYDROcodone/APAP 10-325MG [Mystic 10] 1 - 2 each PO Q6H PRN #56 tab 08/05/22 [Rx] oxyCODONE HCL/ACETAMINOPHEN [Percocet 5-325 mg] 1 tab PO Q4HR PRN #42 tab 08/06/22 [Rx] Follow up Appointment(s)/Referral(s): David Hernandez, QUITA [PHYSICIAN BENZOL STILL OPERATOR] - 2 Weeks (Patient may follow-up with David Hernandez PA-C or Dr. Rajan Mejia at [facility] in 2-3 weeks following discharge. ) Activity/Diet/Wound Care/Special Instructions: 1. Patient may shower with Optifoam dressing intact. 2. Patient may remove Optifoam dressing in 3 days and shower without a dressing at that time. 3. Patient should refrain from driving until at least after their first follow- up appointment in the office. 4. Patient should avoid excessive bending, twisting, lifting; avoid overhead lifting; no lifting greater than 10 pounds 5. Take medications as prescribed 6. Patient should avoid anti-inflammatory medications over the next 6 weeks postoperatively 7. Do not soak in tub Discharge Disposition: HOME SELF-CARE
[2022-08-06 11:46] LABS: Glucose,Whole Blood 114 mg/dL (70-110)
[2022-08-06 12:07] VITALS: BP 93/59; PULSE 72
== END 2022-08-06 13:27 | disposition home or self-care (01) | DRG 454 ==
LOC: OR 09:51 → 5NMEDONC 16:06 → OR 23:29 → OBSVTOIN 08-05 11:27
PROVIDERS: ADMIT Orthopaedic Surgery Orthopaedic Surgery of the Spine; ATTEND Orthopaedic Surgery Orthopaedic Surgery of the Spine
PROC: 0SG30A0 Fusion of Lumbosacral Joint with Interbody Fusion Device, Anterior Approach, Anterior Column, Open Approach (ICD-10-PCS; principal; 2022-08-03 11:45)
PROC: 0ST20ZZ Resection of Lumbar Vertebral Disc, Open Approach (ICD-10-PCS; principal; 2022-08-03 11:45)
PROC: 01NR0ZZ Release Sacral Nerve, Open Approach (ICD-10-PCS; principal; 2022-08-03 11:45)
PROC: 0ST40ZZ Resection of Lumbosacral Disc, Open Approach (ICD-10-PCS; principal; 2022-08-03 11:45)
PROC: 0SG00J1 Fusion of Lumbar Vertebral Joint with Synthetic Substitute, Posterior Approach, Posterior Column, Open Approach (ICD-10-PCS; principal; 2022-08-03 11:45)
PROC: 0SG0071 Fusion of Lumbar Vertebral Joint with Autologous Tissue Substitute, Posterior Approach, Posterior Column, Open Approach (ICD-10-PCS; principal; 2022-08-03 11:45)
PROC: 01NB0ZZ Release Lumbar Nerve, Open Approach (ICD-10-PCS; principal; 2022-08-03 11:45)
PROC: 8E0WXBZ Computer Assisted Procedure of Trunk Region (ICD-10-PCS; principal; 2022-08-03 11:45)
PROC: 0SG30J1 Fusion of Lumbosacral Joint with Synthetic Substitute, Posterior Approach, Posterior Column, Open Approach (ICD-10-PCS; principal; 2022-08-03 11:45)
PROC: 07DS3ZZ Extraction of Vertebral Bone Marrow, Percutaneous Approach (ICD-10-PCS; principal; 2022-08-03 11:45)
PROC: 0SG00A0 Fusion of Lumbar Vertebral Joint with Interbody Fusion Device, Anterior Approach, Anterior Column, Open Approach (ICD-10-PCS; principal; 2022-08-03 11:45)
PROC: 0SG3071 Fusion of Lumbosacral Joint with Autologous Tissue Substitute, Posterior Approach, Posterior Column, Open Approach (ICD-10-PCS; principal; 2022-08-03 11:45)
DX: M48.061 Spinal stenosis, lumbar region without neurogenic claudication (principal); M47.16 Other spondylosis with myelopathy, lumbar region; M48.07 Spinal stenosis, lumbosacral region; K58.0 Irritable bowel syndrome with diarrhea; M47.26 Other spondylosis with radiculopathy, lumbar region; M51.16 Intervertebral disc disorders with radiculopathy, lumbar region; M51.17 Intervertebral disc disorders with radiculopathy, lumbosacral region; E11.9 Type 2 diabetes mellitus without complications; Z96.41 Presence of insulin pump (external) (internal); Z79.4 Long term (current) use of insulin; F17.210 Nicotine dependence, cigarettes, uncomplicated; F41.1 Generalized anxiety disorder; Z79.899 Other long term (current) drug therapy; K21.00 Gastro-esophageal reflux disease with esophagitis, without bleeding; Z28.311 Partially vaccinated for COVID-19; Z28.21 Immunization not carried out because of patient refusal
CPT/HCPCS: 72100; 80048; 81025; 85025; 86850; 86891; 86900; 86901

== ENCOUNTER → 2023-02-07 | Outpatient (CLI) | payer BC ==
--- NOTE | 2023-02-07 13:50 | US ---
EXAMINATION TYPE: US venous doppler duplex LE LT DATE OF EXAM: 02/07/2023 1:23 PM COMPARISON: NONE CLINICAL INDICATION: Female, 42 years old with history of M79.662 PAIN IN LEFT LOWER LEG; Pain in lef t lower leg x couple weeks. No hx of DVT. Patient does not take blood thinners. SIDE PERFORMED: Left TECHNIQUE: The lower extremity deep venous system is examined utilizing real time linear array sonog funmilayo with graded compression, doppler sonography and color-flow sonography. VESSELS IMAGED: Common Femoral Vein Deep Femoral Vein Greater Saphenous Vein * Femoral Vein Popliteal Vein Small Saphenous Vein * Proximal Calf Veins (* superficial vessels) Left Leg: Internal echoes seen within superficial vein in the upper-mid left medial calf. Color fl ow not seen within, appearance of superficial thrombus. No evidence of DVT. IMPRESSION: Acute superficial venous thrombosis below the knee towards end of study. No acute DVT in the left lower extremity.
== END | disposition home or self-care (01) ==
LOC: RADUSWWP 12:52
PROVIDERS: ATTEND Family Medicine
DX: I82.492 Acute embolism and thrombosis of other specified deep vein of left lower extremity (principal)

== ENCOUNTER 2025-04-17 06:31 | Day surgery (SDC) | payer BC ==
[2025-04-17] MEDS ORDERED: LIDOCAINE 1% (10MG/ML) FOR IV START INTRADERMA PRN (07:18)
[2025-04-17] MEDS: IV FLUID CONTINUATION 1,000 ML IV ONE (07:23)
[2025-04-17 07:24] VITALS: TEMP 97.1
[2025-04-17] MEDS: LACTATED RINGERS 1,000 ML IV SCH (07:37)
[2025-04-17] MEDS ORDERED: fentaNYL (PF) 50 MCG/ML 2 ML AMP ONE (07:38)
[2025-04-17] MEDS ORDERED: PROPOFOL 10 MG/ML 20 ML VIAL IV ONE (07:38)
[2025-04-17] MEDS ORDERED: LIDOCAINE 2% (PF) 20 MG/ML 5 ML VIAL ONE (07:38)
--- NOTE | 2025-04-17 07:39 | P.GSHP ---
History of Present Illness H&P Date: 04/17/25 CHIEF COMPLAINT: Dysphagia and colon screen HISTORY OF PRESENT ILLNESS: The patient is a 44-year-old female who presents with dysphagia, gastroesophageal reflux disease and need for colon screen. Upper and lower endoscopy were offered for further evaluation and management. PAST MEDICAL HISTORY: Please see list. PAST SURGICAL HISTORY: Please see list. MEDICATIONS: Please see list. ALLERGIES: Please see list. SOCIAL HISTORY: No illicit drug use FAMILY HISTORY: No reports of Crohn disease or ulcerative colitis. REVIEW OF ORGAN SYSTEMS: CONSTITUTIONAL: No reports of fevers or chills. GI: Denies any blood in stools or constipation. PHYSICAL EXAM: VITAL SIGNS: Stable GENERAL: Well-developed pleasant in no acute distress. HEENT: No scleral icterus. Extraocular movements grossly intact. Moist buccal mucosa. NECK: Supple without lymphadenopathy. CHEST: Unlabored respirations. Equal bilateral excursions. CARDIOVASCULAR: Regular rate and rhythm. Distal 2+ pulses. ABDOMEN: Soft, nondistended. MUSCULOSKELETAL: No clubbing, cyanosis, or edema. ASSESSMENT: 1. Dysphagia and gastroesophageal reflux disease 2. Colon screen. PLAN: 1. Recommend proceeding with an upper and lower endoscopy Past Medical History Past Medical History: Diabetes Mellitus, GERD/Reflux, Hyperlipidemia, Musculoskeletal Disorder Additional Past Medical History / Comment(s): IBS. Back pain, herniated disc History of Any Multi-Drug Resistant Organisms: None Reported Past Surgical History: Back Surgery, Breast Surgery, Cholecystectomy, Orthopedic Surgery Additional Past Surgical History / Comment(s): gall bladder and breast augmentation. Pain proc. 3 back surgeries. colonoscopy Past Anesthesia/Blood Transfusion Reactions: No Reported Reaction Smoking Status: Current every day smoker - Past Family History Mother Family Medical History: Deep Vein Thrombosis (DVT), Pulmonary Embolus Medications and Allergies Home Medications Medication Instructions Recorded Confirmed Type Diphenoxylate HCl/Atropine 2 tab PO QAM 03/10/21 04/16/25 History [Lomotil 2.5-0.025 mg Tablet] Melatonin [Melatonin Tr] 10 mg PO HS 03/10/21 04/16/25 History lamoTRIgine [LaMICtal] 100 mg PO QAM 03/10/21 04/16/25 History traZODone HCL 100 mg PO HS 03/10/21 04/16/25 History ALPRAZolam [Xanax] 0.25 mg PO DAILY PRN 01/20/22 04/16/25 History Citalopram Hydrobromide [CeleXA] 40 mg PO QAM 08/02/22 04/16/25 History Insulin Aspart (For Pump) [NovoLOG 0.01 unit SQ-PUMP CONTINUOUS 08/02/22 04/16/25 History (For Pump)] Atorvastatin [Lipitor] 40 mg PO DAILY 04/16/25 04/16/25 History Ibuprofen [Motrin] 800 mg PO DIRECTED PRN 04/16/25 04/16/25 History Allergies Allergy/AdvReac Type Severity Reaction Status Date / Time No Known Allergies Allergy Verified 04/17/25 07:25 Surgical - Exam Vital Signs Temp Pulse Resp BP Pulse Ox 97.1 F L 73 16 122/56 97 04/17/25 07:22 04/17/25 07:22 04/17/25 07:22 04/17/25 07:22 04/17/25 07:22
[2025-04-17 07:47] LABS: Glucose,Whole Blood 207 mg/dL (70-110)
--- NOTE | 2025-04-17 07:49 | P.PCN ---
Date of Procedure: 04/17/25 Description of Procedure: PREOPERATIVE DIAGNOSIS: Gastroesophageal reflux disease. Dysphagia POSTOPERATIVE DIAGNOSIS: Gastroesophageal reflux disease. Gastritis. OPERATION: Esophagogastroduodenoscopy with cold forceps biopsies along esophagus, antrum and duodenum SURGEON: Luh Dickson MD ANESTHESIA: MAC. INDICATIONS: The patient is a 44-year-old female who presents with dysphagia and reflux disease. Benefits and risks of the procedure were described. Informed consent was obtained. DESCRIPTION: The patient was brought into the endoscopy suite and laid in the left lateral decubitus position. An Olympus gastroscope was passed along the posterior oropharynx down to the distal esophagus where the squamocolumnar junction was encountered at 38 cm from the incisors. The stomach was entered and no bile reflux was found. Additional findings are listed below. Biopsies with cold forceps were obtained of the antrum. The first through third portion of the duodenum was examined. Retroflexion of the scope confirmed Hill grade 2 lower esophageal valve. The squamocolumnar junction demonstrated LA grade B erosive esophagitis. The stomach was desufflated. The patient tolerated the procedure well. FINDINGS: Squamocolumnar junction 38 cm from the incisors. Diaphragmatic hiatus at 38 cm. Hill grade 2 lower esophageal valve. LA grade B erosive esophagitis. Biopsies obtained Biopsies obtained of the duodenum. Chronic gastritis with biopsies obtained. RECOMMENDATIONS: Upper endoscopy as needed.
--- NOTE | 2025-04-17 08:05 | P.PCN ---
Date of Procedure: 04/17/25 Description of Procedure: PREOPERATIVE DIAGNOSIS: Colonoscopy screening POSTOPERATIVE DIAGNOSIS: Tubular adenoma descending Tubular adenoma sigmoid colon Internal hemorrhoids, grade 2 Microscopic colitis OPERATION: Colonoscopy to the ileocecal valve and appendiceal orifice, cecum Colonoscopy with hot snare polypectomy Colonoscopy with cold forceps biopsy, random for colitis SURGEON: Luh Dickson MD. ANESTHESIA: MAC. INDICATIONS: The patient is an 44-year-old female who presents for colonoscopy screening. Benefits and risks were described and informed consent was obtained. DESCRIPTION OF PROCEDURE: The patient had undergone Suprep. The patient had been brought into the operating room and laid in the left lateral decubitus position. After adequate intravenous sedation, the rectum was examined with 2% lidocaine jelly. The prostate was unremarkable. External hemorrhoids were encountered. The rectal tone was within normal limits. No lesions were palpated in the rectal vault. An Olympus colonoscope was advanced until the cecum, ileocecal valve and appendiceal orifice were clearly viewed. The prep was fair. No sigmoid diverticulosis was encountered. Colonic polyps were found and removed. No evidence of focal colitis was found. Retroflexion of the scope demonstrated grade 2 internal hemorrhoids without active bleeding or inflammation. The colon was desufflated. The patient had tolerated the procedure well. Withdrawal time was over 6 minutes. FINDINGS: Aronchick preparation quality scale 2+ (1-5) Internal hemorrhoids, grade 2 External hemorrhoids, grade 2. No arteriovenous malformations. No sigmoid diverticulosis Removal of 3 polyps: - Snare polypectomy x 2, descending colon, 5 - 6 mm tubulovillous adenoma - Snare polypectomy, 20 cm from anal verge, 4 mm tubulovillous adenoma, sigmoid colon - Cold forceps biopsy, random for microscopic colitis No focal colitis. RECOMMENDATIONS: Repeat colonoscopy 3 years, 2027 Plan - Discharge Summary Discharge Rx Participant: No New Discharge Prescriptions: Continue traZODone HCL 100 mg PO HS ALPRAZolam [Xanax] 0.25 mg PO DAILY PRN PRN Reason: Agitation Or Acute Anxiety Insulin Aspart (For Pump) [NovoLOG (For Pump)] 0.01 unit SQ-PUMP CONTINUOUS lamoTRIgine [LaMICtal] 100 mg PO QAM Diphenoxylate HCl/Atropine [Lomotil 2.5-0.025 mg Tablet] 2 tab PO QAM Melatonin [Melatonin Tr] 10 mg PO HS Citalopram Hydrobromide [CeleXA] 40 mg PO QAM Atorvastatin [Lipitor] 40 mg PO DAILY Ibuprofen [Motrin] 800 mg PO DIRECTED PRN PRN Reason: Pain Discharge Medication List Diphenoxylate HCl/Atropine [Lomotil 2.5-0.025 mg Tablet] 2 tab PO QAM 03/10/21 [History] Melatonin [Melatonin Tr] 10 mg PO HS 03/10/21 [History] lamoTRIgine [LaMICtal] 100 mg PO QAM 03/10/21 [History] traZODone HCL 100 mg PO HS 03/10/21 [History] ALPRAZolam [Xanax] 0.25 mg PO DAILY PRN 01/20/22 [History] Citalopram Hydrobromide [CeleXA] 40 mg PO QAM 08/02/22 [History] Insulin Aspart (For Pump) [NovoLOG (For Pump)] 0.01 unit SQ-PUMP CONTINUOUS 08/02/22 [History] Atorvastatin [Lipitor] 40 mg PO DAILY 04/16/25 [History] Ibuprofen [Motrin] 800 mg PO DIRECTED PRN 04/16/25 [History] Follow up Appointment(s)/Referral(s): Luh Dickson MD [STAFF PHYSICIAN] - 05/06/25 11:15 am Patient Instructions/Handouts: Colorectal Polyps (GEN) Activity/Diet/Wound Care/Special Instructions: Repeat colonoscopy 3 years, 2027 Discharge Disposition: HOME SELF-CARE
[2025-04-17 08:25] VITALS: RESP 18
[2025-04-17 08:39] VITALS: BP 12/50; PULSE 63
== END 2025-04-17 09:05 | disposition home or self-care (01) ==
LOC: ORWHC2ENDO 06:31
PROVIDERS: ATTEND Surgery Plastic and Reconstructive Surgery
DX: Z12.11 Encounter for screening for malignant neoplasm of colon (principal); K31.9 Disease of stomach and duodenum, unspecified; K29.50 Unspecified chronic gastritis without bleeding; D12.5 Benign neoplasm of sigmoid colon; D72.820 Lymphocytosis (symptomatic); E11.9 Type 2 diabetes mellitus without complications; E78.5 Hyperlipidemia, unspecified; K21.9 Gastro-esophageal reflux disease without esophagitis; K64.1 Second degree hemorrhoids; K58.9 Irritable bowel syndrome, unspecified; F17.200 Nicotine dependence, unspecified, uncomplicated; Z79.4 Long term (current) use of insulin; Z90.49 Acquired absence of other specified parts of digestive tract; Z79.899 Other long term (current) drug therapy
CPT/HCPCS: 81025; 88305; 45385; 43239; J3010; J2704; J2003